=== PATIENT | female | born 1940 | race Hispanic/Latino ===

== ENCOUNTER 2016-11-21 04:10 | Inpatient (IN) | payer MEDICARE, BC ==
[2016-11-21 04:17] VITALS: BMI 28.0
--- NOTE | 2016-11-21 04:28 | ED PDOC ---
Arrival/HPI - General Chief Complaint: Weakness/Neurological Deficit Time Seen by Provider: 11/21/16 04:12 Historian: Patient - History of Present Illness Narrative History of Present Illness (Text): 11/21/16 04:25 Yesenia Simmons is a 76 year old female, whose past medical history includes CAD, IN, hyperlipidemia, hypertension, SVT, and hypothyroidism, who presents to the Emergency department brought in by EMS complaining of shortness of breath status post syncopal episode. Patient states she woke up tonight with shortness of breath and notes she collapsed to the floor while walking to the bathroom at home. Patient denies any fever, chills, chest pain, nausea, vomiting, diarrhea, urinary symptoms, back pain, neck pain, headache, dizziness, or any other complaints. 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 Deafness: Yes (WITH MEERA HEARING AIDES) - Renal Hx Renal Disorder: No - Endocrine/Metabolic Hx Hypothyroidism: Yes Other/Comment: bubba's disease - Hematological/Oncological Hx Blood Disorders: Yes Hx Cancer: Yes (TONGUE NO RADIATION OR CHEMO) - Integumentary Hx Dermatological Disorder: No - Musculoskeletal/Rheumatological Hx Musculoskeletal Disorders: No Hx Falls: No - Gastrointestinal Hx Gastrointestinal Disorders: Yes - Genitourinary/Gynecological Hx Genitourinary Disorders: No - Psychiatric Hx Psychophysiologic Disorder: No Hx Depression: No Hx Emotional Abuse: No Hx Physical Abuse: No Hx Substance Use: No - Past Surgical History Past Surgical History: Non-Contributing - Surgical History Other/Comment: BIALTERAL CATARACT SX 2007 - Anesthesia Hx Anesthesia Reactions: No Hx Malignant Hyperthermia: No - Suicidal Assessment Feels Threatened In Home Enviroment: No Family/Social History - Physician Review Nursing Documentation Reviewed: Yes Family/Social History: No Known Family HX Smoking Status: Never Smoked Hx Alcohol Use: No Hx Substance Use: No Hx Substance Use Treatment: No Allergies/Home Meds Allergies/Adverse Reactions: Allergies Penicillins Allergy (Verified 11/21/16 04:24) RASH gluten Adverse Reaction (Verified 11/21/16 04:24) DIARRHEA Home Medications: Home Meds Medication Instructions Recorded Confirmed Montelukast Sodium [Singulair] 10 mg PO DAILY 08/18/15 11/21/16 Promethazine HCl/Codeine 1 tsp PO Q6 08/18/15 11/21/16 [Prometh-Codein 6.25-10 mg/5 ml] Thyroid,Pork [[place] Thyroid] 1 tab PO DAILY 11/21/16 11/21/16 Review of Systems - Physician Review All systems were reviewed & negative as marked: Yes - Review of Systems Constitutional: Normal Eyes: Normal ENT: Normal Respiratory: SOB Gastrointestinal: Normal. absent: Abdominal Pain, Diarrhea, Nausea, Vomiting Genitourinary Female: Normal. absent: Dysuria, Frequency, Hematuria, Urine Output Changes Musculoskeletal: Normal. absent: Back Pain, Neck Pain Skin: Normal. absent: Rash Neurological: Normal. absent: Headache, Dizziness Endocrine: Normal Hemo/Lymphatic: Normal Psychiatric: Normal Physical Exam Vital Signs Reviewed: Yes Vital Signs Temp Pulse Resp BP Pulse Ox 11/21/16 09:00 72 16 148/94 H 97 11/21/16 07:20 97.8 F 64 16 164/87 H 98 11/21/16 06:57 65 16 137/80 98 11/21/16 04:16 98.0 F 83 18 170/99 H 95 Temperature: Afebrile Blood Pressure: Hypertensive Pulse: Regular Respiratory Rate: Normal Appearance: Positive for: Well-Appearing, Non-Toxic, Comfortable Pain Distress: None Mental Status: Positive for: Alert and Oriented X 3 - Systems Exam Head: Present: Atraumatic, Normocephalic Pupils: Present: PERRL Extroacular Muscles: Present: EOMI Conjunctiva: Present: Normal Mouth: Present: Moist Mucous Membranes Neck: Present: Normal Range of Motion Respiratory/Chest: Present: Clear to Auscultation, Good Air Exchange. No: Respiratory Distress, Accessory Muscle Use Cardiovascular: Present: Regular Rate and Rhythm, Normal S1, S2. No: Murmurs Abdomen: Present: Normal Bowel Sounds. No: Tenderness, Distention, Peritoneal Signs Back: Present: Normal Inspection Upper Extremity: Present: Normal Inspection. No: Cyanosis, Edema Lower Extremity: Present: Normal Inspection. No: Edema Neurological: Present: GCS=15, CN II-XII Intact, Speech Normal Skin: Present: Warm, Dry, Normal Color. 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 Plan: -- CT Head w/o contrast -- EKG -- Chest X-ray -- Labs, troponin, D-dimer -- Reassess and disposition Prior Visits: Notes and results from previous visits were reviewed. Progress Notes: Reviewed EKG, NSR at 82 bpm[address] Non-specific ST/T wave changes. 11/21/16 06:18 Reviewed radiology, Chest X-ray shows no active disease. Case discussed with Dr. Yu, who is aware and agrees with plan. Accepts pt in to his service. Pt will go to Telemetry for syncope. - Lab Interpretations Lab Results: 11/22/16 06:00 11/22/16 06:00 Lab Results 11/22/16 06:00: Sodium 141, Potassium 3.9, Chloride 106, Carbon Dioxide 28, Anion Gap 11, BUN 15, Creatinine 0.7, Est GFR ( Amer) > 60, Est GFR (Non- Af Amer) > 60, Random Glucose 88, Calcium 9.0, Magnesium 1.8, Total Bilirubin 0.9, Direct Bilirubin 0.4, AST 30, ALT 33, Alkaline Phosphatase 76, Total Protein 7.3, Albumin 3.9, Globulin 3.4, Albumin/Globulin Ratio 1.1 11/22/16 06:00: WBC 5.3, RBC 4.22, Hgb 13.0, Hct 38.6, MCV 91.5, MCH 30.8, MCHC 33.7, RDW 15.4 H, Plt Count 220, MPV 10.1, Gran % 51.1, Lymph % (Auto) 36.3 H, Sebastian % (Auto) 8.3 H, Eos % (Auto) 3.4, Baso % (Auto) 0.9, Gran # 2.70, Lymph # 1.9, Sebastian # 0.4, Eos # 0.2, Baso # 0.05 11/21/16 22:01: Total Creatine Kinase 47, Troponin I 0.07 D 11/21/16 12:07: Total Creatine Kinase 62, Troponin I 0.09 11/21/16 12:07: RPR Nonreactive 11/21/16 12:07: Free T4 0.94, Thyroxine (T4) 7.1, TSH 3rd Generation 2.07 11/21/16 12:07: Total Creatine Kinase 57, Troponin I 0.09 D, Triglycerides 65, Cholesterol 188, LDL Cholesterol Direct 82, HDL Cholesterol 78 H 11/21/16 12:00: 25-OH Vitamin D Total 62.8 11/21/16 05:00: PT 11.1, INR 1.03, APTT 26.7, D-Dimer, Quantitative 0.48 11/21/16 05:00: WBC 5.7 D, RBC 4.43, Hgb 13.8, Hct 40.2, MCV 90.7, MCH 31.2, MCHC 34.3, RDW 15.1 H, Plt Count 222, MPV 10.5, Gran % 53.3, Lymph % (Auto) 37.9 H, Sebastian % (Auto) 5.8, Eos % (Auto) 2.3, Baso % (Auto) 0.7, Gran # 3.02, Lymph # 2.2, Sebastian # 0.3, Eos # 0.1, Baso # 0.04 11/21/16 05:00: Sodium 144, Potassium 3.3 L, Chloride 107, Carbon Dioxide 26, Anion Gap 14, BUN 17, Creatinine 0.6, Est GFR ( Amer) > 60, Est GFR (Non- Af Amer) > 60, Random Glucose 102, Calcium 9.2, Total Bilirubin 0.4, AST 37, ALT 34, Alkaline Phosphatase 89, Troponin I 0.02 D, Total Protein 7.5, Albumin 4.1, Globulin 3.4, Albumin/Globulin Ratio 1.2 I have reviewed the lab results: Yes - RAD Interpretation Radiology Orders: 11/21/16 04:24 HEAD W/O CONTRAST [CT] Stat 11/21/16 04:26 CHEST ONE VIEW [RAD] Stat 11/21/16 07:22 BRAIN W & WO CONTRAST [MRI] Urgent MRA HEAD WITHOUT CONTRAST [MRI] Urgent CAROTID & VERTEBRAL DUPLEX [US] Stat - EKG Interpretation Interpreted by ED Physician: Yes Type: 12 lead EKG - Medication Orders Current Medication Orders: Acetaminophen (Tylenol 325mg Tab) 650 mg PO Q4H PRN PRN Reason: Pain, Mild (1-3) Aspirin (Ecotrin) 325 mg PO DAILY [facility] Last Admin: 11/24/16 10:45 Dose: 325 mg Atorvastatin Calcium (Lipitor) 40 mg PO DAILY [facility] Last Admin: 11/24/16 10:50 Dose: Not Given Non-Admin Reason: Patient Refused Clopidogrel Bisulfate (Plavix) 75 mg PO DAILY [facility] Last Admin: 11/24/16 10:45 Dose: 75 mg Diltiazem HCl (Cardizem Cd) 180 mg PO DAILY [facility] Last Admin: 11/24/16 10:46 Dose: 180 mg Enoxaparin Sodium (Lovenox) 30 mg SC DAILY [facility] PRN Reason: Protocol Last Admin: 11/24/16 10:49 Dose: Not Given Non-Admin Reason: Patient Refused Losartan Potassium (Cozaar) 100 mg PO DAILY [facility] Last Admin: 11/24/16 10:45 Dose: 100 mg Pantoprazole Sodium (Protonix Ec Tab) 40 mg PO 0630 [facility] Last Admin: 11/24/16 05:48 Dose: 40 mg Discontinued Medications Carvedilol (Coreg) 6.25 mg PO BID [facility] Last Admin: 11/21/16 10:53 Dose: 6.25 mg Clopidogrel Bisulfate (Plavix) 75 mg PO STAT STA Stop: 11/21/16 21:29 Last Admin: 11/21/16 22:12 Dose: 75 mg Enoxaparin Sodium (Lovenox) 40 mg SC DAILY [facility] PRN Reason: Protocol Last Admin: 11/21/16 10:56 Dose: 40 mg Enoxaparin Sodium (Lovenox) 70 mg SC Q24H [facility] PRN Reason: Protocol Last Admin: 11/22/16 23:30 Dose: Gadodiamide (Omniscan No Safepak) Confirm Administered Dose 4,305 mg IV .STK- MED ONE Stop: 11/21/16 09:59 Losartan Potassium (Cozaar) 100 mg PO DAILY [facility] Losartan Potassium (Cozaar) 50 mg PO DAILY [facility] Last Admin: 11/23/16 06:26 Dose: 50 mg Losartan Potassium (Cozaar) 50 mg PO DAILY [facility] Losartan Potassium (Cozaar) 50 mg PO STAT STA Stop: 11/23/16 08:37 Last Admin: 11/23/16 09:02 Dose: 50 mg Pneumococcal Polyvalent Vaccine (Pneumovax 23 Vaccine) 0.5 ml IM .ONCE ONE Stop: 11/21/16 13:16 Potassium Chloride (K-Dur 20 Meq Er Tab) 20 meq PO STAT STA Stop: 11/21/16 05:42 Last Admin: 11/21/16 05:54 Dose: 20 meq Potassium Chloride (Potassium Chloride Oral Soln) 40 meq PO STAT STA Stop: 11/21/16 07:30 Last Admin: 11/21/16 08:43 Dose: 40 meq - Jorgeibrosanne Statement The provider has reviewed the documentation as recorded by the Jorgeibrosanne Anthony All medical record entries made by the José Miguel were at my direction and personally dictated by me. I have reviewed the chart and agree that the record accurately reflects my personal performance of the history, physical exam, medical decision making, and the department course for this patient. I have also personally directed, reviewed, and agree with the discharge instructions and disposition. Disposition/Present on Arrival - Present on Arrival Any Indicators Present on Arrival: No History of DVT/PE: No History of Uncontrolled Diabetes: No Urinary Catheter: No History of Decub. Ulcer: No History Surgical Site Infection Following: None - Disposition Have Diagnosis and Disposition been Completed?: Yes Diagnosis: Syncope Disposition: HOSPITALIZED Disposition Time: 06:20 Condition: GOOD
[2016-11-21 05:11] LABS: ADD MANUAL DIFF? NO
[2016-11-21 05:27] LABS: BASO # 0.04 K/mm3 (0.0-2.0); BASO % 0.7 % (0.0-3.0); EOS # 0.1 (0.0-0.7); EOS % 2.3 % (1.5-5.0); GRAN # 3.02 (1.4-6.5); GRAN % 53.3 % (50.0-68.0); HEMATOCRIT 40.2 % (36.0-48.0); LYMPH # 2.2 (1.2-3.4); LYMPH % 37.9 % (22.0-35.0); MEAN CELL VOLUME 90.7 fL (80.0-105.0); MEAN CORPUSCULAR HEMOGLOBIN 31.2 pg (25.0-35.0); MEAN CORPUSCULAR HGB CONC 34.3 g/dl (31.0-37.0); MEAN PLATELET VOLUME 10.5 fl (7.0-11.0); MONO # 0.3 (0.1-0.6); MONO % 5.8 % (1.0-6.0); PLATELET COUNT 222 10^3/uL (120.0-450.0); RED CELL DISTRIBUTION WIDTH 15.1 % (11.5-14.5); WHITE BLOOD COUNT 5.7 10^3/ul (4.5-11.0)
[2016-11-21 05:29] LABS: ALB/GLOB RATIO 1.2 (1.1-1.8); ALKALINE PHOSPHATASE 89 U/L (38-133); ALT/SGPT 34 U/L (7-56); AST/SGOT 37 U/L (15-39); BILIRUBIN,TOTAL 0.4 mg/dL (0.2-1.3); BLOOD UREA NITROGEN 17 mg/dL (7-21); CALCIUM 9.2 mg/dL (8.4-10.5); CARBON DIOXIDE 26 mmol/L (21-33); CHLORIDE 107 mmol/L (95-110); GFR AFRICAN-AMERICAN > 60; GLUCOSE,RANDOM 102 mg/dL (70-110); POTASSIUM 3.3 mmol/L (3.6-5.0); SODIUM 144 mmol/L (132-148); TOTAL PROTEIN 7.5 g/dL (5.8-8.3)
[2016-11-21 05:30] LABS: INR 1.03 (0.93-1.08); PARTIAL THROMBOPLASTIN TIME 26.7 Seconds (23.7-30.8)
[2016-11-21 05:34] LABS: D DIMER 0.48 mg/L FEU (0-0.50)
[2016-11-21 05:36] LABS: TROPONIN I 0.02 ng/mL
[2016-11-21] MEDS ORDERED: Potassium Chloride 20 mEq ER Tab PO STA (05:41)
[2016-11-21] MEDS ORDERED: Potassium Chloride 40 mEq/30 ml LIQ UD PO STA (07:29)
--- NOTE | 2016-11-21 08:08 | CT ---
PROCEDURE: CT HEAD WITHOUT CONTRAST. HISTORY: syncope COMPARISON: 08/18/2015 TECHNIQUE: Axial computed tomography images were obtained through the head/brain without intravenous contrast. Radiation dose: Total exam DLP = 688 mGy-cm. This CT exam was performed using one or more of the following dose reduction techniques: Automated exposure control, adjustment of the mA and/or kV according to patient size, and/or use of iterative reconstruction technique. FINDINGS: HEMORRHAGE: No intracranial hemorrhage. BRAIN: No mass effect or edema. No atrophy or chronic microvascular ischemic changes. VENTRICLES: Unremarkable. No hydrocephalus. CALVARIUM: Unremarkable. PARANASAL SINUSES: Unremarkable as visualized. No significant inflammatory changes. MASTOID AIR CELLS: Unremarkable as visualized. No inflammatory changes. OTHER FINDINGS: None. IMPRESSION: Normal CT of the Head.
--- NOTE | 2016-11-21 08:33 | US ---
PROCEDURE: Bilateral carotid artery duplex ultrasound HISTORY: Carotid stenosis syncope PHYSICIAN(S): Flip Quintero MD. TECHNIQUE: Duplex sonography and color-flow Doppler were used to evaluate the carotid bifurcations and limited segments of the vertebral arteries bilaterally. FINDINGS: There is mild smooth heterogeneous plaque noted at the carotid bifurcations bilaterally. The peak systolic velocity in the proximal right internal carotid artery is 56 cm/sec. This corresponds to a 20 to 39% proximal right ICA stenosis. Normal systolic velocities are noted in the proximal right external carotid artery. There is antegrade flow in the right vertebral artery. The peak systolic velocity in the proximal left internal carotid artery is 60 cm/sec. This corresponds to a 20 to 39% proximal left ICA stenosis. Normal systolic velocities are noted in the proximal left external carotid artery. There is antegrade flow in the left vertebral artery. IMPRESSION: 1. Bilateral 20-39% proximal ICA stenoses. 2. Antegrade flow in both vertebral arteries.
[2016-11-21] MEDS: Pantoprazole 40 mg EC Tab PO SCH (08:43)
--- NOTE | 2016-11-21 08:43 | RAD ---
PROCEDURE: CHEST RADIOGRAPH, 1 VIEW HISTORY: pain COMPARISON: 08/18/2015 FINDINGS: LUNGS: Clear. PLEURA: No pneumothorax or pleural fluid seen. CARDIOVASCULAR: Normal. OSSEOUS STRUCTURES: No significant abnormalities. VISUALIZED UPPER ABDOMEN: Normal. OTHER FINDINGS: None. IMPRESSION: No active disease.
--- NOTE | 2016-11-21 09:44 | CON ---
DATE: 11/21/2016 REASON FOR CONSULTATION: Episode of passing out. HISTORY OF PRESENT ILLNESS: The patient is a 76-year-old female who has been asked for evaluation of episode of passing out. The patient said she woke up last night, wanted to go to the bathroom, and after that as she was walking she just collapsed. She did not have any urinary incontinence or tongu e biting. Denies any chest pain or palpitation right before that. Did have some lightheadedness. S he said she thinks she passed out very briefly and she was not unconscious for a long time. Denied a ny focal weakness in arms or legs. She said that she passed out about 3 years ago in the past. At t he moment she feels fine. REVIEW OF SYSTEMS: Denies any headache, dizziness, chest pain, shortness of breath, abdominal pain, constipation, diarrhea, dysuria, pyuria, cough, sputum production, rashes, hallucinations, or any abn ormal swelling. PAST MEDICAL HISTORY: Includes Chago thyroiditis. MEDICATIONS AT HOME: Include Singulair, promethazine/codeine, Bernard thyroid and Zithromax. ALLERGIES: PENICILLIN AND GLUTEN. SOCIAL HISTORY: Denies smoking, use of alcohol or illicit drugs. FAMILY HISTORY: Reviewed and noncontributory to the case. PHYSICAL EXAMINATION: GENERAL: The patient is an elderly pleasant female lying on the bed in no acute distress. VITAL SIGNS: Her blood pressure is 164/87, heart rate is 64 per minute, breathing at a rate of 16 pe r minute, temperature is 97.8 degrees Fahrenheit. HEENT: Head is normocephalic, atraumatic. NECK: Supple. There are no carotid bruits. LUNGS: Clear. CARDIOVASCULAR: S1, S2 audible. No murmurs. ABDOMEN: Soft and nontender, bowel sounds present. NEUROLOGIC EXAMINATION: MENTAL STATUS: The patient is awake, alert, oriented to time, place, person. Speech is fluent. Nam ing and repetition normal. Memory and cognition are intact. CRANIAL NERVES: Pupils are 4 mm, bilaterally reactive to light. Visual faith are full. Extraocula r movements are intact. There is no facial asymmetry. Palate is upgoing bilaterally and tongue is m idline. MOTOR: Tone is normal. Power is 5/5 bilaterally in all extremities. Reflexes 1+ and symmetrical. Plantars downgoing bilaterally. CEREBELLAR: [id number] shows no dysmetria. GAIT: Deferred at the moment. SENSORY: Intact to soft touch and pinprick bilaterally. LABORATORY DATA: Reviewed. Shows WBC 5.7, hemoglobin 13.8, hematocrit 40.2, and platelets of 222. INR is 1.03. Sodium is 144, potassium 3.3, chloride 107, carbon dioxide 26, BUN 17, creatinine 0.6, and glucose of 102. She had a CT scan of the head done which showed a normal CT scan of the head. She also had a carotid Doppler study done which shows 20-39% proximal internal carotid artery stenosis. IMPRESSION: Syncope. Rule out cardiac arrhythmias versus seizure. RECOMMENDATIONS: 1. The patient to have MRI of the brain without contrast. 2. The patient also to have an electroencephalogram. 3. The patient to have cardiac monitoring to rule out any cardiac arrhythmias. 4. At the moment, the patient feels fine. 5. Please continue supportive care and other treatment. Thank you for the opportunity to participate in the care of this patient. Konrad Brothers MD cc: [id number] TT: 11/21/2016 09:43:09 Confirmation # [id number] Dictation # [id number] [id number]
[2016-11-21] MEDS ORDERED: Gadodiamide 287 MG/ML VIAL (15ML) IV ONE (09:58)
[2016-11-21] MEDS ORDERED: Enoxaparin 40 mg Syringe SC SCH (10:00)
--- NOTE | 2016-11-21 10:17 | CARD ---
APPROVED REPORT EKG Measurement Heart [id number] <Conclusion> Sinus rhythm with premature atrial complexes Possible Left atrial enlargement RSR' or QR pattern in V1 suggests right ventricular conduction delay Borderline ECG
--- NOTE | 2016-11-21 10:44 | MRI ---
PROCEDURE: MRI BRAIN WITH AND WITHOUT CONTRAST HISTORY: SYNCOPE COMPARISON: None. TECHNIQUE: Multiplanar, multisequence MR images of the brain were obtained with and without intravenous contrast enhancement. 15 cc of Omniscan FINDINGS: HEMORRHAGE: None DWI: No evidence of an acute or early subacute infarction. BRAIN PARENCHYMA: No mass,mass effect or edema. No atrophy or chronic microvascular ischemic changes. ENHANCEMENT: No abnormal intracranial enhancement. VENTRICLES: Unremarkable. No hydrocephalus. CRANIUM: Unremarkable. ORBITS: Grossly unremarkable. PARANASAL SINUSES/MASTOIDS: Clear VASCULAR SYSTEM: Skull base flow voids intact. OTHER FINDINGS: None . IMPRESSION: Unremarkable pre and post contrast enhanced MRI of the brain.
--- NOTE | 2016-11-21 10:46 | MRI ---
PROCEDURE: Magnetic Resonance Angiography Brain HISTORY: SYNCOPE COMPARISON: None available. TECHNIQUE: 3D time of flight MR angiography of the intracranial arteries was performed. Rotating maximum intensity projection images were generated. FINDINGS: INTERNAL CEREBRAL ARTERIES: Unremarkable. The skull base, petrous, cavernous and supraclinoid segments are bilaterally widely patient. ANTERIOR CEREBRAL ARTERIES: Unremarkable. A1 and A2 segments are widely patent. Smaller distal branches unremarkable, as visualized. MIDDLE CEREBRAL ARTERIES: Unremarkable. M1 and M2 segments are widely patent. Perisylvian branches grossly symmetric. POSTERIOR CIRCULATION: Basilar Artery: Unremarkable. Distal Vertebral Arteries: Unremarkable. Posterior Cerebral Arteries: Unremarkable. Posterior Inferior Cerebellar Arteries: Unremarkable. ANEURYSM/ VASCULAR MALFORMATIONS: None. OTHER FINDINGS: None. IMPRESSION: Unremarkable MR angiography of the brain.
[2016-11-21] MEDS: Aspirin 325 mg EC Tablets PO SCH (10:53)
--- NOTE | 2016-11-21 11:20 | HP ---
The patient is a 76-year-old very poorly compliant female who does not follow up regularly in the off ice and does not take prescribed medication, came to the Emergency Room by [facility] ambulance after , according to the triage note, the patient got up to go to the bathroom and collapsed on the floor w ith loss of consciousness, and the patient developed shortness of breath after collapsing. The patie nt had shortness of breath with loss of consciousness while going towards the bathroom. REVIEW OF SYSTEMS: A 13-system review was done. Pertinent positives and negatives dictated above. CODE STATUS: Full code. LIVING WILL AND ADVANCED DIRECTIVE: None. ALLERGIES: PENICILLIN AND GLUTEN. Height is 5 feet 3 inches. Weight is 158. BMI is 28. HOME MEDICATIONS: The patient stated that she is only taking [place] thyroid 15 ____. The patient is not taking Cardizem CD 180. The patient is not taking statins. The patient is not taking aspirin. OCCUPATIONAL HISTORY: Disabled. MENSTRUAL HISTORY: Postmenopausal. SOCIAL HISTORY: Denies substance abuse. Denies alcohol. Denies smoking, denies drug use, denies co mmunicable transmissible disease. FAMILY HISTORY: Not available. 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 The patient's past medical history is also significant for history of atelectasis, pneumonia, history of incomplete right bundle-branch block, history of pneumonia. The patient's past medical history i s also significant for status post partial glossectomy, history of lingular tongue carcinoma, history of hepatic steatosis, history of systemic inflammatory response syndrome, history of elevated D-dime r in the past, history of nonspecific mediastinal lymphadenopathy, history of hypothyroidism, history of cardiac catheterization in 2011 with normal ejection fraction 70% with normal coronaries. Incomp lete right bundle-branch block. The patient's EEG, which was done in 07/2015 was negative and normal EEG. PHYSICAL EXAMINATION: GENERAL: The patient was seen in the Emergency Room, then the patient was seen on the floor on telem etry. The patient is seen lying in the bed. VITAL SIGNS: T-max 98.0, heart rate 64-83, blood pressure 170/99, 137/80, 164/87, 148/94, respiratio ns 16-18, O2 sat 95%-98%. HEAD: Normocephalic, atraumatic. HEENT: Shows pink conjunctivae, anicteric sclerae, positive left-sided tongue deformity and partial glossectomy. NECK: Questionable soft carotid bruit. CHEST: Kyphosis. LUNGS: Show ____ very occasional rhonchi. CARDIOVASCULAR: S1, S2. Questionable soft systolic murmur left sternal border, left second intercos beatriz space. ABDOMEN: Soft, positive bowel sounds. No tenderness, no guarding, no rigidity. GENITALIA: Female. RECTAL: Deferred. EXTREMITIES: Shows no clubbing, no cyanosis, no pitting edema, no calf tenderness, no Homans' sign. NEUROLOGIC: The patient is alert, awake, oriented x 3. Cranial nerves II-XII intact. Speech is nor mal. SKIN: Warm and dry. PSYCHIATRIC: Negative for anxiety, depression. Negative for auditory or visual hallucination Negati ve for suicidal or homicidal ideation. NEUROLOGICAL: Negative at this time. GAIT: Could not be tested, as the patient is lying in the bed, and waiting to go for MRI of the bra in. DIAGNOSTICS: CBC is within normal limits. PT, PTT, and D-dimer are negative. Chemistry is signific ant for a potassium of 3.3, troponin 0.02. CAT scan of the head was done, which the [facility] reading [place] reading was reviewed. v[facility] reading w as reviewed. Chest x-ray report shows no active disease. [facility] reading shows possible chronic left basal ganglia l acunar infarct. The patient's carotid ultrasound was ordered stat. MRI/MRA brain ordered stat. Results are pending. Carotid ultrasound showed 20-39% proximal internal carotid artery stenosis. EKG shows sinus rhythm with questionable right ventricular conduction delay versus incomplete right b undle-branch block. The patient was seen by the Emergency Room physician. The patient was evaluated. The patient was tr eated in the Emergency Room and placed on telemetry. IMPRESSION AND PLAN: 1. Syncope with shortness of breath, etiology undetermined. 2. History of paroxysmal supraventricular tachycardia, noncompliant with medication. 3. Uncontrolled hypertension. 4. Hypokalemia. 5. Questionable chronic left basal ganglia lacunar infarct. 6. Bilateral 20%-39% proximal internal carotid artery stenosis. 7. Questionable incomplete right bundle-branch block versus right ventricular conduction delay. 8. History of poor compliance. 9. History of lingular carcinoma status post partial glossectomy. 10. Hypokalemia. 11. History of hypothyroidism, history of dyslipidemia, history of hearing deficit, history of parox ysmal supraventricular tachycardia, history of dyslipidemia, history of hypothyroidism, history of to ngue carcinoma, history of hypothyroidism, history of hearing deficit, history of questionable chroni c obstructive pulmonary disease, history of pneumonia. PLAN: 1. At this time, the patient is placed on telemetry. 2. Consultation cardiology and neurology. 3. Thyroid profile ordered, vitamin D ordered, lipid panel ordered, serial cardiac enzymes, repeat c hemistry ordered, potassium supplemented. Repeat labs ordered, RPR ordered. The patient is resumed on Coreg 6.25 twice a day, Cozaar 50 mg daily, Ecotrin 325 daily. The patient has been supplemented with potassium, Lipitor 40 daily, Lovenox 40 subQ daily for DVT pro phylaxis, Protonix 40 mg daily for GI prophylaxis, Tylenol p.r.n. The patient is ordered MRI/MRA of the brain, echo with Doppler, EEG. Repeat EKG will be ordered. Heart-healthy diet. The patient was updated about the possible diagnostic possibilities and possible causes of her sympto ms. The patient was again advised strict compliance with medication. The patient was advised strict dietary compliance, strict compliance with medication. The patient was advised strict compliance wi th physician followup, which she acknowledged and understood. At this time, the patient's further disposition will be dependent upon the patient's clinical conditi on, hemodynamic status, and as per patient's response to therapeutic intervention, as per patient's d iagnostic test results, and as per recommendation by all the physicians involved in the care of the p atient. Dictated and electronically signed, not read. Juancho Yu MD cc: [id number] TT: 11/21/2016 11:19:08 monet
--- NOTE | 2016-11-21 12:28 | CON ---
DATE: 11/21/2016 CARDIOLOGY CONSULTATION HISTORY: The patient is a 76-year-old woman who had a near syncopal episode while [place] [employer] [place] The patient has had previous syncopal episodes before in which the workup has been unrevealing. PAST MEDICAL HISTORY: Notable for documented SVT in which she was successfully treated with Cardizem CD. Her previous echo in 2016 was unremarkable. The patient does suffer from hypertension. Negative diabetes mellitus. No previous cardiac history. No angina, no shortness of breath. SOCIAL HISTORY: The patient does not smoke. REVIEW OF SYSTEMS: A 14-point review of systems was reviewed. No cardiac symptomatology can be elic ited. PHYSICAL EXAMINATION: VITAL SIGNS: Blood pressure is 149/78. Heart rate is in the 70s. NECK: Negative JVD. LUNGS: Without rales. HEART: Reveals S1, S2. EXTREMITIES: Without edema. EKG shows normal sinus rhythm with APCs, but no acute changes. LABORATORIES: Troponins are 0.02 with one that was 0.04. The hemoglobin was 13.8. IMPRESSION: 1. Near syncope. 2. Hypertension. 3. No evidence for acute coronary syndrome. 4. History of hypothyroidism. 5. History of supraventricular tachycardia. Given these findings, the patient was scheduled for a stress test last year, which she never showed u p for her procedure. We will repeat an echocardiogram today. We will monitor on telemetry for 24 hours. We will continue her on her Cardizem. Flip Lr MD cc: [id number] TT: 11/21/2016 12:28:28 Confirmation # [id number] Dictation # [id number] jn
[2016-11-21 12:34] LABS: TROPONIN I 0.09 ng/mL
[2016-11-21 12:42] LABS: FREE T4 0.94 ng/dL (0.78-2.19); T4 7.1 ug/dL (5.5-11.0)
[2016-11-21 12:55] LABS: THYROID STIMULATING HORMONE 2.07 mIU/mL (0.46-4.68)
[2016-11-21] MEDS: diltiaZEM 180 mg/24 Hours CD Cap PO SCH (12:55)
[2016-11-21] MEDS ORDERED: Pneumococcal 23-Valent Vaccine IM ONE (13:15)
[2016-11-21 22:48] LABS: TROPONIN I 0.07 ng/mL
[2016-11-22] MEDS: Pantoprazole 40 mg EC Tab PO SCH (05:35)
[2016-11-22 06:53] LABS: ADD MANUAL DIFF? NO
[2016-11-22 07:15] LABS: BASO # 0.05 K/mm3 (0.0-2.0); BASO % 0.9 % (0.0-3.0); EOS # 0.2 (0.0-0.7); EOS % 3.4 % (1.5-5.0); GRAN % 51.1 % (50.0-68.0); HEMATOCRIT 38.6 % (36.0-48.0); LYMPH # 1.9 (1.2-3.4); LYMPH % 36.3 % (22.0-35.0); MEAN CELL VOLUME 91.5 fL (80.0-105.0); MEAN CORPUSCULAR HEMOGLOBIN 30.8 pg (25.0-35.0); MEAN CORPUSCULAR HGB CONC 33.7 g/dl (31.0-37.0); MEAN PLATELET VOLUME 10.1 fl (7.0-11.0); MONO # 0.4 (0.1-0.6); MONO % 8.3 % (1.0-6.0); PLATELET COUNT 220 10^3/uL (120.0-450.0); RED CELL DISTRIBUTION WIDTH 15.4 % (11.5-14.5); WHITE BLOOD COUNT 5.3 10^3/ul (4.5-11.0)
[2016-11-22 07:16] LABS: ALB/GLOB RATIO 1.1 (1.1-1.8); ALKALINE PHOSPHATASE 76 U/L (38-133); ALT/SGPT 33 U/L (7-56); AST/SGOT 30 U/L (15-39); BILIRUBIN,DIRECT 0.4 mg/dL (0.0-0.4); BILIRUBIN,TOTAL 0.9 mg/dL (0.2-1.3); BLOOD UREA NITROGEN 15 mg/dL (7-21); CARBON DIOXIDE 28 mmol/L (21-33); CHLORIDE 106 mmol/L (98-107); GFR AFRICAN-AMERICAN > 60; GLUCOSE,RANDOM 88 mg/dL (70-110); MAGNESIUM 1.8 mg/dL (1.7-2.2); SODIUM 141 mmol/L (132-148); TOTAL PROTEIN 7.3 g/dL (5.8-8.3)
[2016-11-22 07:29] LABS: POTASSIUM 3.9 mmol/L (3.6-5.0)
--- NOTE | 2016-11-22 09:27 | PN ---
DATE: 11/22/2016 SUBJECTIVE: The patient is sitting on the bed, in no acute distress. Denies having any headache or dizziness. PHYSICAL EXAMINATION: VITAL SIGNS: Her blood pressure is 151/81, heart rate is 60 per minute, breathing at a rate of 16 pe r minute, temperature is 97.1 degrees Fahrenheit. HEENT: Normocephalic, atraumatic. NECK: Supple. There are no carotid bruits. LUNGS: Clear. CARDIOVASCULAR: S1, S2 audible. No murmurs. ABDOMEN: Soft, nontender, bowel sounds present. NEUROLOGIC EXAMINATION: MENTAL STATUS: The patient is awake, alert, oriented to time, place, person. Speech is fluent. Nam ing and repetition normal. Memory and cognition are intact. She is hard of hearing. CRANIAL NERVE: Pupils are 3 mm bilaterally, reactive to light. Visual faith are full. Extraocular movements are intact. There is no facial asymmetry. Palate is upgoing bilaterally and tongue is mi dline. MOTOR: Tone is normal. Power is 5/5 bilaterally in all extremities. Reflexes +2 and symmetrical. Plantars downgoing bilaterally. CEREBELLAR: [id number] shows no dysmetria. LABORATORY DATA: Labs reviewed. MRI of the brain unremarkable. MRA of the brain unremarkable. EEG normal. IMPRESSION: Status post syncope. RECOMMENDATIONS: 1. The patient had no further episode of passing out or feeling like passing out. 2. The patient's neuro imaging as well as electroencephalogram is within normal limits. 3. The patient had a carotid Doppler study which was normal as well. 4. The patient's cardiac monitoring does not reveal any cardiac arrhythmias. 5. No further neurologic recommendations. We will sign off. Please call on an as needed basis. Thank you for the opportunity to participate in the care of this patient. Konrad Brothers MD cc: [id number] TT: 11/22/2016 09:27:04 Confirmation # [id number] Dictation # [id number] tn
--- NOTE | 2016-11-22 09:51 | EEG ---
DATE: 11/21/2016 INTRODUCTION: This is a digitally recorded EEG monitoring using standard EEG montages. BACKGROUND RHYTHM: The EEG shows a background activity of 8 Hz alpha activity in parietooccipital re gion. The EEG activity is bilaterally symmetrical and synchronous. There is attenuation of the back ground activity on eye opening. Drowsiness was noted by slowing of the background activity. ABNORMAL POTENTIALS: No spikes, sharp waves or focal slowing was seen. PHOTIC STIMULATION AND HYPERVENTILATION: Photic stimulation did not reveal any abnormality. Hyperve ntilation was not performed. IMPRESSION: Normal electroencephalogram. No epileptiform activity seen in this electroencephalogram recording. oKnrad Brothers MD cc: [id number] TT: 11/22/2016 09:50:19 Confirmation # [id number] Dictation # [id number] en
--- NOTE | 2016-11-22 10:26 | PN ---
DATE: 11/22/2016 The patient is in room 277, bed 1. The patient's overnight nurse's notes were reviewed. The patient's troponin bumped yesterday. Case discussed with Dr. Lr last night regarding further management. The patient's overnight nurse's notes were reviewed. No adverse event documented. PHYSICAL EXAMINATION: VITAL SIGNS: T-max 97.6, heart rate 66-79, blood pressure ranging from 151/81, 146/77, 151/74, 149/80, 133/72. Respirations 20, O2 sat averaging around mid to high 90s. GENERAL: The patient is in room 277, bed 1. The patient slept well overnight. DIAGNOSTICS: 11/22: WBC 5.3, hemoglobin and hematocrit 13 and 38.6, platelets 220. Sodium 141, potassium is 3.9, chloride 106, CO2 28, anion gap 11, BUN 15, creatinine 0.7, GFR greater than 60, glucose 88, calcium 9.0, magnesium 1.8. LFTs are normal. Peak troponin I is 0.09, which bumped up to 0.09 from 0.02 on admission. RPR is nonreactive. MRI/MRA of the brain and carotid ultrasound noted. MRI/MRA of the brain was noted to be unremarkable. EKG shows sinus rhythm, questionable incomplete right bundle branch block versus right ventricular conduction delay. EEG read by Dr. Brothers, which was normal EEG without any seizure activity. IMPRESSION AND PLAN: 1. Syncope, etiology undetermined. 2. Indeterminate troponin. 3. History of paroxysmal supraventricular tachycardia. 4. History of poor compliance and noncompliance. 5. Hypertension. 6. Indeterminate troponin. 7. History of hypothyroidism. 8. Hypokalemia. 9. Bilateral 20%-39% proximal internal carotid artery stenosis. 10. Questionable incomplete right bundle branch block versus right ventricular conduction delay. 11. History of poor compliance. 1. Syncope with shortness of breath, etiology undetermined. 2. History of paroxysmal supraventricular tachycardia, noncompliant with medication. 3. Uncontrolled hypertension. 4. Hypokalemia. 5. Questionable chronic left basal ganglia lacunar infarct. 6. Bilateral 20%-39% proximal internal carotid artery stenosis. 7. Questionable incomplete right bundle-branch block versus right ventricular conduction delay. 8. History of poor compliance. 9. History of lingular carcinoma status post partial glossectomy. 10. Hypokalemia. 11. History of hypothyroidism, history of dyslipidemia, history of hearing deficit, history of paroxysmal supraventricular tachycardia, history of dyslipidemia, history of hypothyroidism, history of tongue carcinoma, history of hypothyroidism, history of hearing deficit, history of questionable chronic obstructive pulmonary disease, history of pneumonia. PLAN: At this time, case discussed with cardiology. Their recommendation is to start therapeutic doses of Lovenox, aspirin and Plavix. The patient is to be continued on telemetry. The patient is scheduled for cardiac catheterization on Friday as per cardiology. Echo with Doppler is pending. CURRENT MEDICATIONS: Cardizem-CD 180 mg p.o. daily, Cozaar 50 mg daily, aspirin 325 daily, Lipitor 40 mg daily, Lovenox 70 mg subQ q. 24, Plavix 75 mg daily, Protonix 40 mg daily, Tylenol p.r.n. Echo with Doppler is pending. The patient is on heart healthy diet. The patient will be ordered out of bed ad bong. The patient has been ordered out of bed. At present, patient's further management is dependent upon patient's clinical condition, hemodynamic status, and as per patient's response to therapeutic intervention, as per patient's diagnostic test results. Dictated and electronically signed, not read. Juancho Yu MD cc: [id number] TT: 11/22/2016 10:26:32 Confirmation # [id number] Dictation # [id number] en MTDD
[2016-11-22] MEDS: diltiaZEM 180 mg/24 Hours CD Cap PO SCH (10:39)
[2016-11-22] MEDS: Aspirin 325 mg EC Tablets PO SCH (10:39)
[2016-11-22] MEDS: Enoxaparin 80 mg Syringe SC SCH ×3 (10:40→23:30)
--- NOTE | 2016-11-22 11:19 | CARD ---
APPROVED REPORT EKG Measurement Heart [id number] <Conclusion> Normal sinus rhythm RSR' or QR pattern in V1 suggests right ventricular conduction delay Borderline ECG
--- NOTE | 2016-11-22 16:24 | CON ---
DATE: 11/22/2016 REASON FOR CONSULTATION: Dizziness and near syncope. HISTORY OF PRESENT ILLNESS: The patient is a 76-year-old female who has a history of Chago's dis ease, and history of tongue cancer and with partial resection in 2009, and the patient stated that he r tongue cancer at that time was related to an irritation by a tooth that could not be removed by the dentist on time. The patient received no chemotherapy or radiation therapy after that. The patient is unaware of any history of heart attack in the past. The patient did experience shortness of angela th when she got up at night to go to the bathroom. Then she felt dizzy and collapsed. The patient d enies any complete loss of consciousness. The patient was by herself in the apartment and she [facility]. The patient does not recall experiencing palpitation or diaphoresis. SOCIAL HISTORY: The patient is a nonsmoker, nondrinker. MEDICATIONS: Cardizem CD 180 mg once a day, Cozaar 50 mg once a day, aspirin 325 mg once a day, Lipi tor 40 mg once a day, Lovenox 70 mg subcutaneous twice a day, Plavix 75 mg once a day, Protonix 40 mg p.o. once a day, Tylenol 650 mg q. 6 hours p.r.n. for pain. REVIEW OF SYSTEMS: No nausea or vomiting. No fever or chills. No palpitation and no diaphoresis. PHYSICAL EXAMINATION: GENERAL: The patient is an elderly female who does not appear to be in acute distress. VITAL SIGNS: Blood pressure 176/88, heart rate 62, temperature 97.7, respirations 19. HEENT: Normocephalic. NECK: No JVD. CHEST: Clear. HEART: S1, S2 regular. ABDOMEN: Soft. EXTREMITIES: No edema. LABORATORY DATA: CBC: WBC 5.3; hemoglobin 13; hematocrit 38.6; platelet count 120,000. SMA-7 today is entirely within normal limits. Three sets of troponins are 0.09, 0.09, and 0.07; all in the inde terminate range. TSH level and T4 levels, as well as free T4, are within normal limits. Head MRA, carotid artery ultrasound, and the MRI are all unremarkable. EKG revealed sinus rhythm with RSR pattern in V1. ASSESSMENT: 1. Dizziness and near syncope, rule out cardiac causes. 2. Shortness of breath, rule out underlying congestive heart failure. 3. History of Chago's disease. The patient is currently euthyroid. 4. History of tongue cancer, status post partial resection in 2009. 5. Hypertension. RECOMMENDATIONS: Continue current Cardizem-CD at 180 mg once a day, Cozaar at 50 mg once a day, aspi rin 325 mg once a day, Plavix 75 mg once a day, subcutaneous Lovenox at 70 mg twice a day. I will re view the echocardiographic study performed today and continue telemetry monitoring. Rob Larios MD cc: [id number] TT: 11/22/2016 16:24:13 Confirmation # [id number] Dictation # [id number] dn
--- NOTE | 2016-11-22 17:02 | CARD ---
APPROVED REPORT EXAM: Two-dimensional and M-mode echocardiogram with Doppler and color Doppler. INDICATION Syncope 2D DIMENSIONS Left Atrium (2D)3.4 (1.6-4.0cm)IVSd1.0 (0.7-1.1cm) LVDd4.2 (3.9-5.9cm)PWd1.2 (0.7-1.1cm) LVDs2.7 (2.5-4.0cm)FS (%) 35.7 % LVEF (%)65.6 (>50%) M-Mode DIMENSIONS Aortic Root3.20 (2.2-3.7cm)Aortic Cusp Exc.1.80 (1.5-2.0cm) Aortic Valve AoV Peak Xqeusqjw599.0cm/Yaneth Peak GR.7mmHg Mitral Valve MV E Trryyded25.2cm/sMV A Kffnmcbs01.4cm/sE/A ratio1.1 TDI Lateral E' Peak V8.58cm/sMedial E' Peak V6.63cm/sE/Lateral E'10.9 E/Medial E'14.1 Pulmonary Valve PV Peak Wgvkpwdh14.2cm/sPV Peak Grad.2mmHg Tricuspid Valve TR Peak Ubyyyklm528kl/sRAP RICHHLFI88oqKbSW Peak Gr.10mmHg [id number] LEFT VENTRICLE The left ventricle is normal size. There is normal left ventricular wall thickness. The left ventricular function is normal.EF-65% There is normal LV segmental wall motion. The left ventricular diastolic function is normal. No left ventricle thrombus noted on this study. There is no ventricular septal defect visualized. There is no left ventricular aneurysm. RIGHT VENTRICLE The right ventricle is normal size. There is normal right ventricular wall thickness. The right ventricular systolic function is normal. ATRIA The left atrium size is normal. The right atrium size is normal. The interatrial septum is intact with no evidence for an atrial septal defect. AORTIC VALVE The aortic valve is thickened but opens well. No aortic regurgitation is present. There is no aortic valvular stenosis. There is no aortic valvular vegetation. MITRAL VALVE The mitral valve is thickened but opens well. Mitral regurgitation is trace. There is no mitral valve stenosis. There is no evidence of mitral valve prolapse. TRICUSPID VALVE The tricuspid valve leaflets are thickened , but open well. There is trace tricuspid regurgitation.RVSP-20 mmof hg. There is no tricuspid valve stenosis. There is no tricuspid valve prolapse or vegetation. PULMONIC VALVE The pulmonary valve is normal in structure. GREAT VESSELS The aortic root is normal in size. The ascending aorta is normal in size. The pulmonary artery is normal. The IVC is normal in size and collapses >50% with inspiration. PERICARDIAL EFFUSION There is no pleural effusion. There is a trace pericardial effusion. <Conclusion> Normal Chamber Size. EF-65% Trace MR/TR RVSP-20 mmof Hg.
[2016-11-23] MEDS: Pantoprazole 40 mg EC Tab PO SCH (05:58)
[2016-11-23] MEDS: diltiaZEM 180 mg/24 Hours CD Cap PO SCH (09:01)
[2016-11-23] MEDS: Aspirin 325 mg EC Tablets PO SCH (09:02)
--- NOTE | 2016-11-23 10:25 | PN ---
DATE: 11/23/2016 The patient is seen in room 277, bed 1. The patient is seen lying in the bed. The patient is having breakfast. The patient appears to be comfortable, in no distress. The patient was seen with the patient's nurse. Overnight nurse's notes were reviewed. No adverse events documented. PHYSICAL EXAMINATION: VITAL SIGNS: T-max afebrile. Telemetry shows sinus rhythm, heart rate in 60s. Blood pressure this morning 159/64, 186/91, 183/83, 176/88, 151/81. These are the blood pressure readings for the last 24 hours. Respirations 20, O2 sat 98%. Intake/output not documented correctly. HEAD: Normocephalic, atraumatic. HEENT: Shows positive partial glossectomy. NECK: No carotid bruit. CHEST: Kyphosis. LUNGS: Show no rales, crackles, or wheezing. CARDIOVASCULAR: Shows S1, S2, regular rhythm. ABDOMEN: Soft, positive bowel sounds. GENITALIA: Female. RECTAL: Deferred. EXTREMITIES: Show missing CHANCE stockings despite my orders. NEUROLOGIC: The patient is hard of hearing. Motor strength is 5/5. Cranial nerves II-XII not tested. PSYCHIATRIC: Negative for anxiety, depression. Negative for auditory or visual hallucination. Negative for suicidal or homicidal ideation. DIAGNOSTICS: Sodium 141, potassium 3.9, chloride 106, CO2 28, anion gap 11, BUN 15, creatinine 0.7, GFR greater than 60, glucose 88, calcium 9.0, magnesium 1.8. LFTs are normal. Troponin has peaked up to 0.09 to 0.07. Echocardiogram was reviewed, ejection fraction 65%, right ventricular systolic pressure 20 mmHg. Trace mitral regurgitation, thickened mitral valve leaflet, trace tricuspid regurgitation. EEG was normal. IMPRESSION: 1. Syncope, etiology undetermined. 2. Questionable non-ST elevation myocardial infarction with elevated and indeterminate troponin. 3. Paroxysmal supraventricular tachycardia. 4. Hypertension with episodic uncontrolled hypertension. 5. History of hypothyroidism. 6. Hypokalemia. 7. Bilateral 20-39% proximal internal carotid artery stenosis. 8. Questionable incomplete right bundle branch block versus right ventricular conduction delay. 9. History of poor compliance and noncompliance. 10. History of paroxysmal supraventricular tachycardia, history of hypothyroidism, history of tongue carcinoma, status post glossectomy history of hearing dysfunction, history of sleep apnea. 11. Hypokalemia. 1. Syncope, etiology undetermined. 2. Indeterminate troponin. 3. History of paroxysmal supraventricular tachycardia. 4. History of poor compliance and noncompliance. 5. Hypertension. 6. Indeterminate troponin. 7. History of hypothyroidism. 8. Hypokalemia. 9. Bilateral 20%-39% proximal internal carotid artery stenosis. 10. Questionable incomplete right bundle branch block versus right ventricular conduction delay. 11. History of poor compliance. 1. Syncope with shortness of breath, etiology undetermined. 2. History of paroxysmal supraventricular tachycardia, noncompliant with medication. 3. Uncontrolled hypertension. 4. Hypokalemia. 5. Questionable chronic left basal ganglia lacunar infarct. 6. Bilateral 20%-39% proximal internal carotid artery stenosis. 7. Questionable incomplete right bundle-branch block versus right ventricular conduction delay. 8. History of poor compliance. 9. History of lingular carcinoma status post partial glossectomy. 10. Hypokalemia. 11. History of hypothyroidism, history of dyslipidemia, history of hearing deficit, history of paroxysmal supraventricular tachycardia, history of dyslipidemia, history of hypothyroidism, history of tongue carcinoma, history of hypothyroidism, history of hearing deficit, history of questionable chronic obstructive pulmonary disease, history of pneum PLAN: At this time, the patient's management discussed with cardiology. Dr. Lr recommends a cardiac catheterization because of elevated troponins. CURRENT MEDICATIONS: Cardizem-CD 180 mg daily, Cozaar increased to 100 mg daily , aspirin 325 daily, Lipitor 40 mg daily, Plavix 75 mg daily, Protonix 40 mg daily, Tylenol p.r.n. Repeat EKG ordered. Today's EKG is not available. The patient has been ordered heart healthy diet, out of bed, CHANCE stockings, SCDs. The patient updated and explained about her condition, diagnosis, further need for diagnostic and therapeutic interventions, discussed and explained to the patient at length and all questions and concerns answered. The patient's condition, diagnosis, further management and test results discussed with the patient's daughter, Tamar, via the phone. All questions and concerns answered to their satisfaction. Dictated and electronically signed, not read. Juancho Yu MD cc: [id number] TT: 11/23/2016 10:24:45 Confirmation # [id number] Dictation # [id number] tn [email or web address]
--- NOTE | 2016-11-23 15:32 | PN ---
DATE: 11/23/2016 SUBJECTIVE: The patient denies any dizziness or palpitation. She is ambulatory. No reported ventri cular arrhythmia. PHYSICAL EXAMINATION: VITAL SIGNS: Blood pressure 149/78, heart rate 83, temperature 97.7, respirations 20. HEENT: Normocephalic. NECK: No JVD. CHEST: Clear. HEART: S1, S2 regular. EXTREMITIES: No edema. Echocardiographic study revealed normal ejection fraction and normal, right ventricular systolic pres sure as well as normal diastolic pressure. ASSESSMENT: 1. Dizziness and near syncope. 2. Shortness of breath at time of presentation. The patient's left ventricular systolic function as well as diastolic function is reported to be normal on echocardiograph study. 3. History of Chago's disease. 4. Hypertension. 5. History of tongue cancer, status post localized dissection. RECOMMENDATIONS: Continue current Cardizem-CD 180 mg once a day, Cozaar 100 mg once a day, aspirin 3 25 mg once a day, Lipitor at 40 mg once a day, reduce Lovenox to 30 mg subcutaneously once a day and discontinue Plavix as there is no clear neurological indication. I will follow the 24 hour Holter jovanny landaverde. Rob Larios MD cc: [id number] TT: 11/23/2016 15:32:19 Confirmation # [id number] Dictation # [id number]
[2016-11-24] MEDS: Pantoprazole 40 mg EC Tab PO SCH (05:48)
[2016-11-24] MEDS: Aspirin 325 mg EC Tablets PO SCH (10:45)
[2016-11-24] MEDS: Enoxaparin 80 mg Syringe SC SCH ×2 (10:46→10:49)
[2016-11-24] MEDS: diltiaZEM 180 mg/24 Hours CD Cap PO SCH (10:46)
--- NOTE | 2016-11-24 14:22 | PN ---
DATE: 11/24/2016 The patient denies any shortness breath, chest pain or dizziness. PHYSICAL EXAMINATION: VITAL SIGNS: Blood pressure 160/76, heart rate 60, temperature 97.6, respiration 18. HEENT: Normocephalic. NECK: No JVD. CHEST: Clear. HEART: S1, S2 regular. EXTREMITIES: No edema. ASSESSMENT: 1. Dizziness and near syncope. 2. Shortness of breath. 3. Chest pain, rule out underlying ischemic heart disease. RECOMMENDATIONS: Continue current Cardizem-CD at 180 mg once a day, Cozaar at 100 mg once a day, asp irin 325 mg once a day, Lipitor at 40 mg once a day, Lovenox at 30 mg subcutaneously once a day, Plav ix 75 mg once a day. Case was discussed with Dr. Yu. The plan is for the patient to undergo card iac catheterization tomorrow. Rob Larios MD cc: [id number] TT: 11/24/2016 14:21:16 Confirmation # [id number] Dictation # [id number] en
--- NOTE | 2016-11-24 15:31 | PN ---
DATE: 11/24/2016 The patient is seen now in room 265, bed 1. The patient is seen lying in the bed watching TV. Overnight nurses' notes were reviewed. No adverse events were documented except the change of the room. The patient's telemetry shows sinus rhythm. PHYSICAL EXAMINATION: VITAL SIGNS: T-max afebrile, heart rate 60-69 to 79, normal sinus rhythm. Blood pressure in the last 24 hours ranging from 150/81, 176/88, 186-91, 159/64 , 169/83, 160/70. Respiration 18. O2 sat is 96% to 98%. HEAD: Normocephalic, atraumatic. HEENT: Shows pink conjunctivae, anicteric sclerae. No oropharyngeal lesion. NECK: No neck rigidity. Soft carotid bruit. CHEST: Kyphosis. LUNGS: Shows no rales, crackles, or wheezing. CARDIOVASCULAR: Shows S1, S2, regular rhythm. ABDOMEN: Soft, positive bowel sounds. GENITALIA: Female. RECTAL: Deferred. EXTREMITIES: Shows no pitting edema, no calf tenderness, no Homans sign. Positive CHANCE stockings. MUSCULOSKELETAL: Shows a body mass index of 28.3. NEUROLOGIC: Cranial nerves II-XII intact. GAIT: Examination could not be tested. PSYCHIATRIC: Negative for anxiety. Negative for depression. Negative for auditory hallucinations. Negative for suicidal or homicidal ideation. Positive hearing deficit noted. DIAGNOSTICS: None from 11/24. IMAGING: None from 11/24. EKG from today was reviewed, which shows sinus rhythm, questionable right ventricular conduction delay versus incomplete right bundle branch block. The patient was seen by cardiology today. Discussed the case with Dr. Larios. The patient is to undergo cardiac catheterization tomorrow as per Dr. Lr's recommendation. EEG was noted. IMPRESSION AND PLAN: 1. Syncope. 2. Questionable non-ST elevation myocardial infarction with elevated and indeterminate troponin. 3. Left ventricular ejection fraction of greater than 60%. 4. Trace mitral and trace tricuspid regurgitation. 5. Hypertension. 6. History of severe noncompliance and poor compliance. 7. History of tongue carcinoma with partial glossectomy. 8. Hypovitaminosis D. 9. History of hypothyroidism. 10. History of hypovitaminosis D. 11. Bilateral 20% to 39% proximal internal carotid artery stenosis. 12. Questionable incomplete right bundle branch block versus right ventricular conduction delay. 1. Syncope, etiology undetermined. 2. Questionable non-ST elevation myocardial infarction with elevated and indeterminate troponin. 3. Paroxysmal supraventricular tachycardia. 4. Hypertension with episodic uncontrolled hypertension. 5. History of hypothyroidism. 6. Hypokalemia. 7. Bilateral 20-39% proximal internal carotid artery stenosis. 8. Questionable incomplete right bundle branch block versus right ventricular conduction delay. 9. History of poor compliance and noncompliance. 10. History of paroxysmal supraventricular tachycardia, history of hypothyroidism, history of tongue carcinoma, status post glossectomy history of hearing dysfunction, history of sleep apnea. 11. Hypokalemia. 1. Syncope, etiology undetermined. 2. Indeterminate troponin. 3. History of paroxysmal supraventricular tachycardia. 4. History of poor compliance and noncompliance. 5. Hypertension. 6. Indeterminate troponin. 7. History of hypothyroidism. 8. Hypokalemia. 9. Bilateral 20%-39% proximal internal carotid artery stenosis. 10. Questionable incomplete right bundle branch block versus right ventricular conduction delay. 11. History of poor compliance. 1. Syncope with shortness of breath, etiology undetermined. 2. History of paroxysmal supraventricular tachycardia, noncompliant with medication. 3. Uncontrolled hypertension. 4. Hypokalemia. 5. Questionable chronic left basal ganglia lacunar infarct. 6. Bilateral 20%-39% proximal internal carotid artery stenosis. 7. Questionable incomplete right bundle-branch block versus right ventricular conduction delay. 8. History of poor compliance. 9. History of lingular carcinoma status post partial glossectomy. 10. Hypokalemia. 11. History of hypothyroidism, history of dyslipidemia, history of hearing deficit, history of paroxysmal supraventricular tachycardia, history of dyslipidemia, history of hypothyroidism, history of tongue carcinoma, history of hypothyroidism, history of hearing deficit, history of questionable chronic obstructive pulmonary disease, history of pneumonia. PLAN: At this time, the patient is scheduled for cardiac catheterization as per Dr. Lr in the a.m. CURRENT MEDICATIONS: 1. Cardizem-CD 180 grams daily. 2. Cozaar 100 mg daily. 3. Aspirin 325 mg daily. 4. Lipitor 40 mg daily. 5. Lovenox, changed by Dr. Larios to 30 mg subQ daily. 6. Plavix 75 mg daily. 7. Protonix 40 mg daily. 8. Tylenol 650 q.4 p.r.n. Repeat EKG ordered. EEG was done, reviewed. The patient's diagnostic lab data , imaging studies, echo, EKG and all of the imaging studies were reviewed and explained to the patient in layman's language. All questions and concerns were answered. The patient is agreeable to proceed for cardiac catheterization in the a.m. The patient's further management will be dependent upon the patient's clinical condition, hemodynamic status, and as per patient's response to therapeutic intervention, as per patient's diagnostic test results and as per recommendation by cardiology after the cardiac catheterization results, which was explained to the patient. Dictated and electronically signed, not read. Juacnho Yu MD cc: [id number] TT: 11/24/2016 15:31:10 Confirmation # [id number] Dictation # [id number] shantell TILLMAN
--- NOTE | 2016-11-24 22:07 | CARD ---
APPROVED REPORT EKG Measurement Heart [id number] NC 150P10 [id number] <Conclusion> Sinus bradycardia RSR' or QR pattern in V1 suggests right ventricular conduction delay Cannot rule out Anterior infarct, age undetermined Abnormal ECG
[2016-11-25 01:08] VITALS: O2SAT 97
[2016-11-25] MEDS: Pantoprazole 40 mg EC Tab PO SCH (05:59)
[2016-11-25 06:54] VITALS: RESP 20
[2016-11-25] MEDS: Aspirin 325 mg EC Tablets PO SCH ×2 (08:41→11:34)
[2016-11-25] MEDS ORDERED: Lidocaine 2% Inj (20ml) ONE (09:40)
[2016-11-25] MEDS ORDERED: Midazolam 2 MG/2 ML VIAL ONE ×2 (09:40→10:13)
[2016-11-25] MEDS ORDERED: Iodixanol 320 MG/ML 200 ML BOTTLE IV ONE (09:41)
[2016-11-25] MEDS ORDERED: Iodixanol 320 MG/ML 100 ML BOTTLE IV ONE (09:41)
[2016-11-25] MEDS ORDERED: Sodium Chloride 0.9% 1,000 ML IV SCH (11:00)
--- NOTE | 2016-11-25 11:13 | CARDCATH ---
PROCEDURE DATE: 11/25/2016 HISTORY: The patient is a 76-year-old woman who presents with syncope. Her troponins were found to be mildly elevated. Because of this, cardiac catheterization was recommended. PROCEDURE: Left heart catheterization with coronary angiography and left ventriculogram. The right femoral artery was cannulated with a 6-Bengali sheath. There were no complications. Findings on catheterization revealed a left ventricle that contracted normally. Estimated ejection f raction is 65%. Her coronary anatomy revealed a left main artery that was unremarkable. The LAD revealed mild intimal irregularities without significant stenosis. The second diagonal vessel revealed a proximal 50% stenosis and ____ 50% stenosis with FROY 3 flow. The circumflex artery and obtuse marginal branch revealed intimal irregularities without significant stenosis. The right coronary artery was selectively cannulized and found to be a codominant vessel. The RCA re vealed intimal irregularities without significant stenoses. Angio-Seal was used to close the femoral artery site. The patient tolerated the procedure well. IN SUMMARY: The procedure revealed mild coronary artery disease with a 50% stenosis in the second di agonal vessel. Left ventricular function is normal. Given these findings, the patient's treatment would be baby aspirin daily as well as statin therapy w ith a cardiac risk reduction program. Flip Lr MD cc: [id number] TT: 11/25/2016 11:07:48 la 11/25/2016 10:12:10
[2016-11-25] MEDS: diltiaZEM 180 mg/24 Hours CD Cap PO SCH (11:34)
[2016-11-25] MEDS: Enoxaparin 80 mg Syringe SC SCH (11:35)
[2016-11-25 11:53] VITALS: TEMP 98.4
--- NOTE | 2016-11-25 12:21 | DS ---
The patient is seen in room 265, bed 1. The patient is lying in the bed post- cardiac catheterization. The patient does not offer any specific complaint. Overnight nurse's notes were reviewed. No adverse events documented. PHYSICAL EXAMINATION: VITAL SIGNS: T-max 98.1. Telemetry shows sinus rhythm, heart rate 70s and 60s beats per minute. Blood pressure 142/8, 148/65, 116/76, 156/89, 169/73. Respiration 20, O2 sat 97%. HEAD: Normocephalic, atraumatic. HEENT: Shows pink conjunctivae, anicteric sclerae. No oropharyngeal lesion. No oropharyngeal lesion except for partial left-sided glossectomy. NECK: No neck rigidity. CHEST: Kyphosis. LUNGS: Shows no rales, crackles, or wheezing. CARDIOVASCULAR: S1, S2, regular rhythm. ABDOMEN: Soft, positive bowel sounds. GENITALIA: Female. Positive right groin dressing. Positive palpable pulses. MUSCULOSKELETAL: Shows a body mass index of 28. NEUROLOGIC: Cranial nerves II-XII limited. GAIT: Not tested as patient is lying in the bed post cardiac catheterization and patient is on bedrest post cardiac catheterization. MUSCULOSKELETAL: Shows a body mass index of 28. Cardiac catheterization which was done today shows proximal 50% stenosis of the diagonal 2-vessel. Left ventricular ejection fraction 65% on cardiac catheterization. Summary on the cardiac cath, 50% stenosis of the proximal diagonal 2-vessel with normal ejection fraction. Recommendation, baby aspirin, statin and cardiac ____ program, which was explained to the patient. FINAL IMPRESSION, PLAN, AND DISCHARGE DIAGNOSES: 1. Nonobstructive coronary artery disease with 50% stenosis of the proximal diagonal 2-vessel blood vessel. 2. Left ventricular ejection fraction of 65% on cardiac catheterization. 3. History of poor compliance and noncompliance. 4. Uncontrolled hypertension. 5. History of paroxysmal supraventricular tachycardia. 6. Questionable and possible non-ST elevation myocardial infarction with elevated troponin and indeterminate troponin. 7. History of hypothyroidism. 8. History of dyslipidemia. 9. History of poor compliance. 10. Sinus bradycardia. 11. Possible incomplete right bundle branch block versus right ventricular conduction delay. 1. Syncope. 2. Questionable non-ST elevation myocardial infarction with elevated and indeterminate troponin. 3. Left ventricular ejection fraction of greater than 60%. 4. Trace mitral and trace tricuspid regurgitation. 5. Hypertension. 6. History of severe noncompliance and poor compliance. 7. History of tongue carcinoma with partial glossectomy. 8. Hypovitaminosis D. 9. History of hypothyroidism. 10. History of hypovitaminosis D. 11. Bilateral 20% to 39% proximal internal carotid artery stenosis. 12. Questionable incomplete right bundle branch block versus right ventricular conduction delay. 1. Syncope, etiology undetermined. 2. Questionable non-ST elevation myocardial infarction with elevated and indeterminate troponin. 3. Paroxysmal supraventricular tachycardia. 4. Hypertension with episodic uncontrolled hypertension. 5. History of hypothyroidism. 6. Hypokalemia. 7. Bilateral 20-39% proximal internal carotid artery stenosis. 8. Questionable incomplete right bundle branch block versus right ventricular conduction delay. 9. History of poor compliance and noncompliance. 10. History of paroxysmal supraventricular tachycardia, history of hypothyroidism, history of tongue carcinoma, status post glossectomy history of hearing dysfunction, history of sleep apnea. 11. Hypokalemia. 1. Syncope, etiology undetermined. 2. Indeterminate troponin. 3. History of paroxysmal supraventricular tachycardia. 4. History of poor compliance and noncompliance. 5. Hypertension. 6. Indeterminate troponin. 7. History of hypothyroidism. 8. Hypokalemia. 9. Bilateral 20%-39% proximal internal carotid artery stenosis. 10. Questionable incomplete right bundle branch block versus right ventricular conduction delay. 11. History of poor compliance. 1. Syncope with shortness of breath, etiology undetermined. 2. History of paroxysmal supraventricular tachycardia, noncompliant with medication. 3. Uncontrolled hypertension. 4. Hypokalemia. 5. Questionable chronic left basal ganglia lacunar infarct. 6. Bilateral 20%-39% proximal internal carotid artery stenosis. 7. Questionable incomplete right bundle-branch block versus right ventricular conduction delay. 8. History of poor compliance. 9. History of lingular carcinoma status post partial glossectomy. 10. Hypokalemia. 11. History of hypothyroidism, history of dyslipidemia, history of hearing deficit, history of paroxysmal supraventricular tachycardia, history of dyslipidemia, history of hypothyroidism, history of tongue carcinoma, history of hypothyroidism, history of hearing deficit, history of questionable chronic obstructive pulmonary disease, history of pneumonia. PLAN: At this time, the patient will be on bedrest until 5:00 p.m. today post- cardiac catheterization. After that, patient has been cleared for discharge by cardiology. The patient is to be discharged on following medications: 1. Thyroid Franklin 15 ____ daily. 2. Cardizem-CD 180 mg daily. 3. Cozaar 100 mg p.o. daily. 4. Lipitor 40 mg daily. 5. Protonix 40 mg daily. 6. The patient is to resume Singulair 10 mg and Ventolin HFA inhaler. The patient is discharged home with discharge followup with Dr. Yu within 1 week. Referral to [facility] home health aide, home PT. Discharge medications as per updated ambulatory orders which are sent to the patient's pharmacy electronically. During this hospitalization, patient was extensively explained about her diagnosis, test results, recommendation, treatment plan, outpatient followup plan, compliance with medication, diet and physician followup was extensively explained to the patient and the patient's daughter, Tamar. All questions and concerns answered to their satisfaction. The patient has been updated about her condition, diagnosis, treatment plan, management plan at length, which she acknowledged and understands. Time spent in the entire discharge process more than 45 minutes. Dictated and electronically signed, not read. Juancho Yu MD cc: [id number] TT: 11/25/2016 12:21:17 sn MTDD
[2016-11-25 15:52] VITALS: BP 139/73; PULSE 65
== END 2016-11-25 17:38 | disposition home or self-care (01) | DRG 281 ==
LOC: ED 04:10 → ERH 06:23 → 2RSO 10:22 → OBSVTOIN 11-22 14:31 → 2RNO 11-23 16:42
PROVIDERS: ADMIT Internal Medicine; ATTEND Internal Medicine
PROC: 4A023N7 Measurement of Cardiac Sampling and Pressure, Left Heart, Percutaneous Approach (ICD-10-PCS; principal; 2016-11-25)
PROC: B2111ZZ Fluoroscopy of Multiple Coronary Arteries using Low Osmolar Contrast (ICD-10-PCS; 2016-11-25)
PROC: B2151ZZ Fluoroscopy of Left Heart using Low Osmolar Contrast (ICD-10-PCS; 2016-11-25)
DX: I21.4 Non-ST elevation (NSTEMI) myocardial infarction (principal); I47.1 Supraventricular tachycardia; I11.9 Hypertensive heart disease without heart failure; R00.1 Bradycardia, unspecified; I08.1 Rheumatic disorders of both mitral and tricuspid valves; I25.10 Atherosclerotic heart disease of native coronary artery without angina pectoris; I25.9 Chronic ischemic heart disease, unspecified; I65.29 Occlusion and stenosis of unspecified carotid artery; K76.0 Fatty (change of) liver, not elsewhere classified; J44.9 Chronic obstructive pulmonary disease, unspecified; E55.9 Vitamin D deficiency, unspecified; E06.3 Autoimmune thyroiditis; E78.5 Hyperlipidemia, unspecified; E87.6 Hypokalemia; G47.30 Sleep apnea, unspecified; H91.90 Unspecified hearing loss, unspecified ear; Z79.899 Other long term (current) drug therapy; Z85.810 Personal history of malignant neoplasm of tongue; Z87.01 Personal history of pneumonia (recurrent); Z91.14 Patient's other noncompliance with medication regimen; Z91.19 Patient's noncompliance with other medical treatment and regimen; R40.2412 Glasgow coma scale score 13-15, at arrival to emergency department; M40.209 Unspecified kyphosis, site unspecified; I45.10 Unspecified right bundle-branch block; Z68.28 Body mass index [BMI] 28.0-28.9, adult; R55 Syncope and collapse

== ENCOUNTER 2016-11-28 16:51 | Observation (INO) | payer MEDICARE, BC ==
--- NOTE | 2016-11-28 17:32 | CP.PCM.PN ---
Subjective - Date & Time of Evaluation Date of Evaluation: 11/28/16 Time of Evaluation: 17:31 - Subjective Subjective: pt needs angiocath insertion. Assessment and Plan - Assessment and Plan (Free Text) Assessment: 24 guage angiocath inserted in rt forearm.
[2016-11-28 20:20] VITALS: BMI 28.3
[2016-11-28] MEDS ORDERED: Oxycodone/Acetaminophen 5/325 mg Tab PO PRN (20:47)
[2016-11-28] MEDS: diltiaZEM 180 mg/24 Hours CD Cap PO SCH (21:22)
[2016-11-28 21:27] LABS: HEMATOCRIT 34.3 % (36.0-48.0); MEAN CELL VOLUME 91.2 fL (80.0-105.0); MEAN CORPUSCULAR HEMOGLOBIN 31.4 pg (25.0-35.0); MEAN CORPUSCULAR HGB CONC 34.4 g/dl (31.0-37.0); MEAN PLATELET VOLUME 9.9 fl (7.0-11.0); RED CELL DISTRIBUTION WIDTH 14.8 % (11.5-14.5); WHITE BLOOD COUNT 8.7 10^3/ul (4.5-11.0)
[2016-11-28 21:37] LABS: INR 1.05 (0.93-1.08); PARTIAL THROMBOPLASTIN TIME 28.7 Seconds (23.7-30.8)
[2016-11-28 21:56] LABS: ALB/GLOB RATIO 1.1 (1.1-1.8); ALKALINE PHOSPHATASE 85 U/L (38-133); ALT/SGPT 42 U/L (7-56); AST/SGOT 44 U/L (15-39); BILIRUBIN,TOTAL 0.7 mg/dL (0.2-1.3); BLOOD UREA NITROGEN 15 mg/dL (7-21); CALCIUM 9.1 mg/dL (8.4-10.5); CARBON DIOXIDE 28 mmol/L (21-33); CHLORIDE 103 mmol/L (98-107); GFR AFRICAN-AMERICAN > 60; GLUCOSE,RANDOM 87 mg/dL (70-110); POTASSIUM 3.5 mmol/L (3.6-5.0); SODIUM 139 mmol/L (132-148); TOTAL PROTEIN 7.6 g/dL (5.8-8.3)
[2016-11-28] MEDS ORDERED: Magnesium Oxide 400 mg Tab UD PO STA (22:11)
[2016-11-28] MEDS ORDERED: Potassium Chloride 20 mEq ER Tab PO STA (22:11)
--- NOTE | 2016-11-28 22:22 | CP.PCM.CON ---
<Ani Davalos - Last Filed: 11/28/16 22:12> History of Present Illness - History of Present Illness History of Present Illness: Surgery Consult: Dr. Leyva Pt is a 76F with PMHx significant for HTN and tongue cancer who presented to [facility] on 11/22/16 s/p syncopal episode. During that admission pt was worked up by cardio and a cardiac cath was performed on 11/25. Pt was discharged home that same day, however, the next day she noticed swelling and redness in her right groin. Pt attempted elevating her legs to help alleviate her symptoms, but the swelling increased and area became painful as the day progressed. Pt went to her PMD today who sent her to the ER for further evaluation/treatment. In the ER, a CT abdomen/pelvis were performed and pt was found to have a large right groin hematoma. Surgery and IR were consulted to evaluate. Currently, pt is status post US guided thrombin injection of the R groin hematoma by Dr. Quintero. She states she feels ok and denies any complaints. She admits to feeling some soreness in her R groin. Denies N/V, F/C, dizziness, chest pain or SOB. PMHx: HTN, tongue cancer PSHx: resection of tongue tumor SocialHx: denies smoking/EtOH Allergies: Penicillin, gluten Review of Systems - Review of Systems All systems: reviewed and no additional remarkable complaints except (as per HPI ) Past Patient History - Infectious Disease Hx of Infectious Diseases: None - Tetanus Immunizations Tetanus Immunization: Unknown - Past Social History Smoking Status: Never Smoked - CARDIAC Hx Cardiac Disorders: Yes Hx Hypercholesterolemia: Yes (borderline as per pt) Hx Hypertension: Yes (borderline as per pt) - PULMONARY Hx Sleep Apnea: Yes (pt uses c-pap at night) - NEUROLOGICAL Hx Dizziness: Yes - HEENT Hx Deafness: Yes (hearing aids x2) Other/Comment: judi turner - RENAL Hx Chronic Kidney Disease: No - HEMATOLOGICAL/ONCOLOGICAL Hx Cancer: Yes (tongue with surgery, no chemo or radiation) - INTEGUMENTARY Hx Dermatological Problems: No - MUSCULOSKELETAL/RHEUMATOLOGICAL Hx Falls: No - GENITOURINARY/GYNECOLOGICAL Other/Comment: 5 pregnancies with 1 miscarriage - PSYCHIATRIC Hx Psychophysiologic Disorder: No Hx Depression: No Hx Emotional Abuse: No Hx Physical Abuse: No Hx Substance Use: No - SURGICAL HISTORY Hx Surgeries: Yes (lasik and tongue) Hx Cardiac Catheterization: Yes - ANESTHESIA Hx Anesthesia: Yes Hx Anesthesia Reactions: No Hx Malignant Hyperthermia: No Meds Allergies/Adverse Reactions: Allergies Allergy/AdvReac Type Severity Reaction Status Date / Time Penicillins Allergy RASH Verified 12/05/16 09:37 gluten AdvReac DIARRHEA Verified 12/05/16 09:37 - Medications Medications: Current Medications Acetaminophen (Tylenol 325mg Tab) 650 mg PO Q4H PRN PRN Reason: Pain, Mild (1-3) Atorvastatin Calcium (Lipitor) 40 mg PO DIN [facility] Diltiazem HCl (Cardizem Cd) 180 mg PO DAILY [facility] Last Admin: 11/28/16 21:22 Dose: 180 mg Losartan Potassium (Cozaar) 100 mg PO DAILY [facility] Last Admin: 11/28/16 21:24 Dose: 100 mg Magnesium Oxide (Mag-Ox) 400 mg PO STAT STA Stop: 11/28/16 22:12 Montelukast Sodium (Singulair) 10 mg PO DAILY [facility] Oxycodone/Acetaminophen (Percocet 5/325 Mg Tab) 1 tab PO Q6H PRN PRN Reason: Pain, moderate (4-7) Stop: 12/01/16 20:48 Pantoprazole Sodium (Protonix Ec Tab) 40 mg PO 0630 [facility] Potassium Chloride (K-Dur 20 Meq Er Tab) 40 meq PO STAT STA Stop: 11/28/16 22:12 Physical Exam - Constitutional Appears: Well, No Acute Distress - Head Exam Head Exam: ATRAUMATIC, NORMOCEPHALIC - Eye Exam Eye Exam: Normal appearance - ENT Exam ENT Exam: Mucous Membranes Moist - Respiratory Exam Respiratory Exam: NORMAL BREATHING PATTERN - Cardiovascular Exam Cardiovascular Exam: RRR - GI/Abdominal Exam GI & Abdominal Exam: Soft. absent: Distended, Tenderness - Extremities Exam Extremities exam: Positive for: tenderness (around hematoma ), pedal pulses present. Negative for: pedal edema Additional comments: Right groin with swelling and ecchymosis extending to the anteriolateral thigh, dressing s/p thrombin injection C/D/I - Neurological Exam Neurological exam: Alert, Oriented x3 - Skin Skin Exam: Dry, Warm Results - Vital Signs Recent Vital Signs: Last Vital Signs Temp 98.7 F 11/28/16 19:40 Pulse 95 H 11/28/16 21:22 Resp 20 11/28/16 19:40 BP 173/87 H 11/28/16 21:22 Pulse Ox - Labs Result Diagrams: 11/28/16 21:20 11/28/16 21:20 Labs: Laboratory Results - last 24 hr 11/28/16 11/28/16 11/28/16 21:20 21:20 21:20 WBC 8.7 D RBC 3.76 Hgb 11.8 L Hct 34.3 L MCV 91.2 MCH 31.4 MCHC 34.4 RDW 14.8 H Plt Count 198 MPV 9.9 PT 11.3 INR 1.05 APTT 28.7 Sodium 139 Potassium 3.5 L Chloride 103 Carbon Dioxide 28 Anion Gap 12 BUN 15 Creatinine 0.8 Est GFR ( Amer) > 60 Est GFR (Non-Af Amer) > 60 Random Glucose 87 Calcium 9.1 Total Bilirubin 0.7 AST 44 H ALT 42 Alkaline Phosphatase 85 Total Protein 7.6 Albumin 4.0 Globulin 3.6 Albumin/Globulin Ratio 1.1 - Imaging and Cardiology CT scan - abdomen Status: Image reviewed by me, Report reviewed by me Assessment & Plan - Assessment and Plan (Free Text) Assessment: 76F with R groin hematoma s/p cardiac cath on 11/25 Plan: - no surgical intervention planned at this time as pt is s/p thrombin injection by Dr. Flip Quintero - we will observe hematoma, and monitor for expansion - monitor H/H - encourage ambulation with PT - d/w Dr. Autumn Davalos, PGY-2 Surgery <Wallace Leyva - Last Filed: 02/26/17 22:24> Results - Vital Signs Recent Vital Signs: Last Vital Signs Temp 98.1 F 11/29/16 12:00 Pulse 76 11/29/16 12:00 Resp 20 11/29/16 12:00 BP 152/80 H 11/29/16 12:00 Pulse Ox 96 11/29/16 05:31 - Labs Result Diagrams: 11/29/16 11:00 11/28/16 21:20 Assessment & Plan - Assessment and Plan (Free Text) Plan: Patient was seen and examined by me. I agree with assessment and plan as per resident's note. - Date & Time Date: 11/28/16 Time: 21:15
[2016-11-29 05:33] VITALS: O2SAT 96
[2016-11-29] MEDS ORDERED: Pantoprazole 40 mg EC Tab PO SCH (07:30)
--- NOTE | 2016-11-29 09:14 | CP.PCM.PN ---
<Keily Mendoza - Last Filed: 11/29/16 09:09> Subjective - Date & Time of Evaluation Date of Evaluation: 11/29/16 Time of Evaluation: 07:30 - Subjective Subjective: General Surgery Dr. Leyva Pt S&E @bedside. NAEO. US-guided thrombin injection by Dr. Quintero yesterday. pt tolerated procedure well w/ no complications. Pt has no complaints. has been on bed rest s/p procedure. Objective - Vital Signs/Intake and Output Vital Signs (last 24 hours): Temp Pulse Resp BP Pulse Ox 98 F 75 18 149/73 96 11/29/16 05:31 11/29/16 05:31 11/29/16 05:31 11/29/16 05:31 11/29/16 05:31 Intake and Output: 11/29/16 11/29/16 06:59 18:59 Intake Total 480 Output Total 750 Balance -270 - Medications Medications: Current Medications Acetaminophen (Tylenol 325mg Tab) 650 mg PO Q4H PRN PRN Reason: Pain, Mild (1-3) Atorvastatin Calcium (Lipitor) 40 mg PO DIN [facility] Diltiazem HCl (Cardizem Cd) 180 mg PO DAILY [facility] Last Admin: 11/28/16 21:22 Dose: 180 mg Losartan Potassium (Cozaar) 100 mg PO DAILY [facility] Last Admin: 11/28/16 21:24 Dose: 100 mg Montelukast Sodium (Singulair) 10 mg PO DAILY [facility] Oxycodone/Acetaminophen (Percocet 5/325 Mg Tab) 1 tab PO Q6H PRN PRN Reason: Pain, moderate (4-7) Stop: 12/01/16 20:48 Pantoprazole Sodium (Protonix Ec Tab) 40 mg PO ACB [facility] Last Admin: 11/29/16 08:02 Dose: 40 mg - Labs Labs: AM CBC pending - Constitutional Appears: Non-toxic, No Acute Distress - Head Exam Head Exam: NORMAL INSPECTION - Eye Exam Eye Exam: Normal appearance - ENT Exam ENT Exam: Mucous Membranes Moist - Respiratory Exam Respiratory Exam: NORMAL BREATHING PATTERN. absent: Accessory Muscle Use, Respiratory Distress - GI/Abdominal Exam GI & Abdominal Exam: Soft. absent: Distended, Tenderness - Extremities Exam Additional comments: non-expanding hematoma over R groin. pressure dressing c/d/i TTP over entry site. - Neurological Exam Neurological Exam: Alert, Awake, Oriented x3 - Psychiatric Exam Psychiatric exam: Normal Affect, Normal Mood - Skin Skin Exam: Dry, Intact, Warm Assessment and Plan - Assessment and Plan (Free Text) Assessment: 76 y/o F s/p thrombin injection 2/2 pseudoaneurysm/hematoma 2/2 cardiac cath - f/u AM labs - monitor H/H - OOB to chair/Amb per Dr. Quintero - continue medical management Pt discussed w/ Dr. Autumn Mendoza DO PGY1 <Wallace Leyva - Last Filed: 02/26/17 22:26> Objective - Vital Signs/Intake and Output Vital Signs (last 24 hours): Temp Pulse Resp BP Pulse Ox 98.1 F 76 20 152/80 H 96 11/29/16 12:00 11/29/16 12:00 11/29/16 12:00 11/29/16 12:00 11/29/16 05:31 - Labs Labs: 11/29/16 11:00 11/28/16 21:20 PT 11.3 Seconds (9.9-11.8) 11/28/16 21:20 INR 1.05 (0.93-1.08) 11/28/16 21:20 APTT 28.7 Seconds (23.7-30.8) 11/28/16 21:20 Assessment and Plan - Assessment and Plan (Free Text) Plan: Patient was seen and examined by me. I agree with assessment and plan as per resident's note.
[2016-11-29] MEDS: diltiaZEM 180 mg/24 Hours CD Cap PO SCH (10:13)
[2016-11-29 11:20] LABS: HEMATOCRIT 35.2 % (36.0-48.0); MEAN CELL VOLUME 91.4 fL (80.0-105.0); MEAN CORPUSCULAR HEMOGLOBIN 30.9 pg (25.0-35.0); MEAN CORPUSCULAR HGB CONC 33.8 g/dl (31.0-37.0); MEAN PLATELET VOLUME 10.5 fl (7.0-11.0); RED CELL DISTRIBUTION WIDTH 14.7 % (11.5-14.5); WHITE BLOOD COUNT 7.7 10^3/ul (4.5-11.0)
--- NOTE | 2016-11-29 12:26 | CON ---
DATE: 11/29/2016 HISTORY OF PRESENT ILLNESS: The patient presented with a hematoma post-catheterization. She was fou nd to have a pseudoaneurysm which was injected with fibrin. Repeat ultrasound found today revealed thrombosed pseudoaneurysm. There is no vascular compromise. PAST MEDICAL HISTORY: The patient's past medical history is notable for a recent non-STEMI which was due to stenosis of a second diagonal vessel stenosis. The patient is chest pain free. She is on diltiazem for a documented history of SVT as well as hypercholesterolemia and hypertension. SOCIAL HISTORY: Negative smoker. REVIEW OF SYSTEMS: A 14-point review of systems was reviewed. No cardiac symptomatology is noted. She was anxious about it the appearance of the ecchymoses. PHYSICAL EXAMINATION: VITAL SIGNS: Blood pressure 141/68, heart rate is in the 70s, normal sinus rhythm. NECK: Negative JVD. LUNGS: Without rales. HEART: Reveals S1, S2. EXTREMITIES: Without edema. Right groin site shows marked ecchymoses without active bleeding. LABORATORIES: BUN and creatinine are unremarkable. The hemoglobin is stable; 11.8 yesterday, 11.9 today. Preliminary repeat ultrasound reveals a thrombosed pseudoaneurysm. IMPRESSION: Given these findings. 1. The patient had successful resolution of the pseudoaneurysm with fibrin injection. 2. A recent non-ST elevation myocardial infarction. 3. 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 4. Hypertension. 5. Hypercholesterolemia. Given these findings, I have discussed this with the patient in detail. Her concerns were all answer ed. We will discontinue telemetry today. If the official ultrasound reading reveals a thrombosed pseudoa neurysm, the patient can be discharged with outpatient followup. Flip Lr MD cc: [id number] TT: 11/29/2016 12:25:50 Confirmation # [id number] Dictation # [id number]
[2016-11-29 12:50] VITALS: BP 152/80; PULSE 76; RESP 20; TEMP 98.1
--- NOTE | 2016-11-29 14:17 | DS ---
The patient was seen in room 260, bed 2. I was informed by Dr. Flip Quintero that patient is cleared f or discharge after the repeat ultrasound this morning shows resolution of the right femoral artery ps eudoaneurysm. The patient was cleared for discharge by Dr. Flip Quintero. Overnight, patient was seen by the surgical services coordinator and this morning, patient was seen by Dr. Flip Lr. The patient at present has been cleared for discharge. DISCHARGE FOLLOWUP: With Dr. Yu, Dr. Flip Quintero, Dr. Leyva and Dr. Flip Lr within 1 wee k. The patient was advised rest, limited activity, no strenuous activity, followup as dictated above . The patient was advised to resume her Cardizem-CD 180 mg daily, Lipitor 40 mg daily, Cozaar 100 mg daily, thyroid [place] 15 or 30 mg p.o. daily. The patient is to resume her Singulair 10 mg daily pr escribed by the mine patrol, Ventolin HFA inhaler prescribed by pulmonology. The patient was also advised to resume use of her CPAP. The patient was also advised Protonix 40 mg p.o. daily. The alma ent was again advised and reinforced and counseled about compliance with medication, diet, restrictio ns, activity had followup with physicians as patient has severe history of noncompliance and poor com pliance. Dictated and electronically signed, not read. Juancho Yu MD cc: [id number] TT: 11/29/2016 14:17:03 en
--- NOTE | 2016-11-29 14:17 | US ---
PROCEDURE: Duplex arterial ultrasound of the right groin. HISTORY: Status post right common femoral artery pseudoaneurysm thrombin injection. Evaluate for recanalization. PHYSICIAN(S): Flip Quintero MD. FINDINGS: The right common femoral artery pseudoaneurysm remains thrombosed. A 2 cm hematoma is visualized. The right common femoral artery is patent. The right common femoral vein is patent. IMPRESSION: 1. Thrombosed right common femoral artery pseudoaneurysm post thrombin injection. No sonographic evidence of recanalization.
--- NOTE | 2016-11-29 14:25 | HP ---
The patient is a 76-year-old female who came to the office yesterday for post discharge followup after a 11/25 discharge. The patient complained of 1 -day history of right groin, right upper thigh swelling and bluish discoloration and pain in the area. The patient was seen and examined. In the area, patient was found to have a large area of skin ecchymosis on the right groin and right upper proximal thigh. The patient had tenderness and swelling of the area. The patient was sent right away to the Emergency Room. The patient was sent for a stat ultrasound of the groin. The patient was sent . The patient was sent for a stat CAT scan and right groin ultrasound. CAT scan shows right proximal thigh and upper thigh hematoma and swelling. 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 The patient was seen right away by Dr. Flip Quintero, interventional radiology. The patient underwent an ultrasound-guided thrombin injection of the right femoral artery pseudoaneurysm. The patient was then later on admitted to for overnight observation. The patient's code status is full code. Living will, advanced directive none. The patient's vital signs reviewed. The patient's past medical history, past surgical history, social history, occupational history, medication history, menstrual history, all above history, please review the details of them below as patient was just discharged 2 days ago from [facility]. Copied To: Attending MD: Gigi RODRIGUEZ,Juancho Short The patient is a 76-year-old very poorly compliant female who does not follow up regularly in the office and does not take prescribed medication, came to the Emergency Room by [facility] ambulance after, according to the triage note, the patient got up to go to the bathroom and collapsed on the floor with loss of consciousness, and the patient developed shortness of breath after collapsing. The patient had shortness of breath with loss of consciousness while going towards the bathroom. REVIEW OF SYSTEMS: A 13-system review was done. Pertinent positives and negatives dictated above. CODE STATUS: Full code. LIVING WILL AND ADVANCED DIRECTIVE: None. ALLERGIES: PENICILLIN AND GLUTEN. Height is 5 feet 3 inches. Weight is 158. BMI is 28. HOME MEDICATIONS: The patient stated that she is only taking Chelsea thyroid 15 ____. The patient is not taking Cardizem CD 180. The patient is not taking statins. The patient is not taking aspirin. OCCUPATIONAL HISTORY: Disabled. MENSTRUAL HISTORY: Postmenopausal. SOCIAL HISTORY: Denies substance abuse. Denies alcohol. Denies smoking, denies drug use, denies communicable transmissible disease. FAMILY HISTORY: Not available. 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 The patient's past medical history is also significant for history of atelectasis, pneumonia, history of incomplete right bundle-branch block, history of pneumonia. The patient's past medical history is also significant for status post partial glossectomy, history of lingular tongue carcinoma, history of hepatic steatosis, history of systemic inflammatory response syndrome , history of elevated D-dimer in the past, history of nonspecific mediastinal lymphadenopathy, history of hypothyroidism, history of cardiac catheterization in 2011 with normal ejection fraction 70% with normal coronaries. Incomplete right bundle-branch block. The patient's EEG, which was done in 07/2015 was negative and normal EEG. 1. Nonobstructive coronary artery disease with 50% stenosis of the proximal diagonal 2-vessel blood vessel. 2. Left ventricular ejection fraction of 65% on cardiac catheterization. 3. History of poor compliance and noncompliance. 4. Uncontrolled hypertension. 5. History of paroxysmal supraventricular tachycardia. 6. Questionable and possible non-ST elevation myocardial infarction with elevated troponin and indeterminate troponin. 7. History of hypothyroidism. 8. History of dyslipidemia. 9. History of poor compliance. 10. Sinus bradycardia. 11. Possible incomplete right bundle branch block versus right ventricular conduction delay. 1. Syncope. 2. Questionable non-ST elevation myocardial infarction with elevated and indeterminate troponin. 3. Left ventricular ejection fraction of greater than 60%. 4. Trace mitral and trace tricuspid regurgitation. 5. Hypertension. 6. History of severe noncompliance and poor compliance. 7. History of tongue carcinoma with partial glossectomy. 8. Hypovitaminosis D. 9. History of hypothyroidism. 10. History of hypovitaminosis D. 11. Bilateral 20% to 39% proximal internal carotid artery stenosis. 12. Questionable incomplete right bundle branch block versus right ventricular conduction delay. 1. Syncope, etiology undetermined. 2. Questionable non-ST elevation myocardial infarction with elevated and indeterminate troponin. 3. Paroxysmal supraventricular tachycardia. 4. Hypertension with episodic uncontrolled hypertension. 5. History of hypothyroidism. 6. Hypokalemia. 7. Bilateral 20-39% proximal internal carotid artery stenosis. 8. Questionable incomplete right bundle branch block versus right ventricular conduction delay. 9. History of poor compliance and noncompliance. 10. History of paroxysmal supraventricular tachycardia, history of hypothyroidism, history of tongue carcinoma, status post glossectomy history of hearing dysfunction, history of sleep apnea. 11. Hypokalemia. 1. Syncope, etiology undetermined. 2. Indeterminate troponin. 3. History of paroxysmal supraventricular tachycardia. 4. History of poor compliance and noncompliance. 5. Hypertension. 6. Indeterminate troponin. 7. History of hypothyroidism. 8. Hypokalemia. 9. Bilateral 20%-39% proximal internal carotid artery stenosis. 10. Questionable incomplete right bundle branch block versus right ventricular conduction delay. 11. History of poor compliance. 1. Syncope with shortness of breath, etiology undetermined. 2. History of paroxysmal supraventricular tachycardia, noncompliant with medication. 3. Uncontrolled hypertension. 4. Hypokalemia. 5. Questionable chronic left basal ganglia lacunar infarct. 6. Bilateral 20%-39% proximal internal carotid artery stenosis. 7. Questionable incomplete right bundle-branch block versus right ventricular conduction delay. 8. History of poor compliance. 9. History of lingular carcinoma status post partial glossectomy. 10. Hypokalemia. 11. History of hypothyroidism, history of dyslipidemia, history of hearing deficit, history of paroxysmal supraventricular tachycardia, history of dyslipidemia, history of hypothyroidism, history of tongue carcinoma, history of hypothyroidism, history of hearing deficit, history of questionable chronic obstructive pulmonary disease, history of pneumonia. PHYSICAL EXAMINATION: GENERAL: The patient was seen in the Emergency Room, then the patient was seen on the floor on telemetry. The patient is seen lying in the bed. VITAL SIGNS: T-max 98.0, heart rate 64-83, blood pressure 170/99, 137/80, 164/ 87, 148/94, respirations 16-18, O2 sat 95%-98%. HEAD: Normocephalic, atraumatic. HEENT: Shows pink conjunctivae, anicteric sclerae, positive left-sided tongue deformity and partial glossectomy. NECK: Questionable soft carotid bruit. CHEST: Kyphosis. LUNGS: Show ____ very occasional rhonchi. CARDIOVASCULAR: S1, S2. Questionable soft systolic murmur left sternal border , left second intercostal space. ABDOMEN: Soft, positive bowel sounds. No tenderness, no guarding, no rigidity. GENITALIA: Female. RECTAL: Deferred. EXTREMITIES: Shows no clubbing, no cyanosis, no pitting edema, no calf tenderness, no Homans' sign. NEUROLOGIC: The patient is alert, awake, oriented x 3. Cranial nerves II-XII intact. Speech is normal. SKIN: Warm and dry. PSYCHIATRIC: Negative for anxiety, depression. Negative for auditory or visual hallucination Negative for suicidal or homicidal ideation. NEUROLOGICAL: Negative at this time. GAIT: Could not be tested, as the patient is lying in the bed, and waiting to go for MRI of the brain. DIAGNOSTICS: CBC is within normal limits. PT, PTT, and D-dimer are negative. Chemistry is significant for a potassium of 3.3, troponin 0.02. CAT scan of the head was done, which the [facility] reading [place] reading was reviewed. v[facility] reading was reviewed. Chest x-ray report shows no active disease. vRad reading shows possible chronic left basal ganglia lacunar infarct. The patient's carotid ultrasound was ordered stat. MRI/MRA brain ordered stat. Results are pending. Carotid ultrasound showed 20-39% proximal internal carotid artery stenosis. EKG shows sinus rhythm with questionable right ventricular conduction delay versus incomplete right bundle-branch block. The patient was seen by the Emergency Room physician. The patient was evaluated. The patient was treated in the Emergency Room and placed on telemetry. IMPRESSION AND PLAN: 1. Syncope with shortness of breath, etiology undetermined. 2. History of paroxysmal supraventricular tachycardia, noncompliant with medication. 3. Uncontrolled hypertension. 4. Hypokalemia. 5. Questionable chronic left basal ganglia lacunar infarct. 6. Bilateral 20%-39% proximal internal carotid artery stenosis. 7. Questionable incomplete right bundle-branch block versus right ventricular conduction delay. 8. History of poor compliance. 9. History of lingular carcinoma status post partial glossectomy. 10. Hypokalemia. 11. History of hypothyroidism, history of dyslipidemia, history of hearing deficit, history of paroxysmal supraventricular tachycardia, history of dyslipidemia, history of hypothyroidism, history of tongue carcinoma, history of hypothyroidism, history of hearing deficit, history of questionable chronic obstructive pulmonary disease, history of pneumonia. PLAN: 1. At this time, the patient is placed on telemetry. 2. Consultation cardiology and neurology. 3. Thyroid profile ordered, vitamin D ordered, lipid panel ordered, serial cardiac enzymes, repeat chemistry ordered, potassium supplemented. Repeat labs ordered, RPR ordered. The patient is resumed on Coreg 6.25 twice a day, Cozaar 50 mg daily, Ecotrin 325 daily. The patient has been supplemented with potassium, Lipitor 40 daily, Lovenox 40 subQ daily for DVT prophylaxis, Protonix 40 mg daily for GI prophylaxis, Tylenol p.r.n. The patient is ordered MRI/MRA of the brain, echo with Doppler, EEG. Repeat EKG will be ordered. Heart-healthy diet. The patient was updated about the possible diagnostic possibilities and possible causes of her symptoms. The patient was again advised strict compliance with medication. The patient was advised strict dietary compliance, strict compliance with medication. The patient was advised strict compliance with physician followup, which she acknowledged and understood. At this time, the patient's further disposition will be dependent upon the patient's clinical condition, hemodynamic status, and as per patient's response to therapeutic intervention, as per patient's diagnostic test results, and as per recommendation by all the physicians involved in the care of the patient. PHYSICAL EXAMINATION: GENERAL: The patient was seen in room 260, bed 2. VITAL SIGNS: The patient's blood pressure ranging 145/82. Telemetry shows sinus rhythm. The patient is afebrile. HEAD: Normocephalic, atraumatic. HEENT: Shows pinkish conjunctivae. Anicteric sclerae. No oropharyngeal lesion. NECK: No neck rigidity. CHEST: Kyphosis. LUNGS: Shows no rales, crackles, or wheezing. CARDIOVASCULAR: Shows S1, S2, regular rhythm. ABDOMEN: Soft, positive bowel sounds. EXTREMITIES: Positive ecchymosis of the proximal and upper thigh with positive swelling, positive tenderness noted of the right upper thigh. No pitting edema noted of the lower extremity. VASCULAR: Palpable pulses. GAIT: The patient is ambulating in the room, but out of bed to chair. NEUROLOGIC: The patient is hard of hearing. DIAGNOSTIC DATA: Recent hemoglobin and hematocrit is above 11 grams. PT, PTT is normal. . The ultrasound of right groin was reviewed. IMPRESSION AND PLAN: 1. Post cardiac catheterization right femoral artery 2.4 cm pseudoaneurysm. 2. Right upper thigh, right groin post cardiac catheterization hematoma. 3. Status post thrombin injection of the right femoral artery pseudoaneurysm. 4. Mild normocytic anemia. 5. Mild hypokalemia. 6. History of hypertension, history of dyslipidemia, history of poor compliance , history of hearing deficit, history of hypothyroidism, history of possible sleep apnea, history of tongue carcinoma status post partial glossectomy, history of hearing deficit. PLAN: At this time, patient underwent right femoral artery thrombin injection. The patient has been admitted overnight for observation. The patient had a repeat ultrasound today of the right groin, which shows resolution of the right femoral artery pseudoaneurysm as per Dr. Flip Quintero and patient was cleared for discharge. Dictated and electronically signed, not read. Juancho Yu MD cc: [id number] TT: 11/29/2016 14:15:57 en 11/29/2016 13:23:56 PRIMO
== END 2016-11-29 13:53 | disposition home or self-care (01) ==
LOC: INTOOBSV 16:51 → 2RNO 16:51
PROVIDERS: ADMIT Internal Medicine; ATTEND Internal Medicine
DX: I72.4 Aneurysm of artery of lower extremity (principal); I97.630 Postprocedural hematoma of a circulatory system organ or structure following a cardiac catheterization; D64.9 Anemia, unspecified; E03.9 Hypothyroidism, unspecified; E78.00 Pure hypercholesterolemia, unspecified; E78.5 Hyperlipidemia, unspecified; E87.6 Hypokalemia; G47.30 Sleep apnea, unspecified; H91.90 Unspecified hearing loss, unspecified ear; I10 Essential (primary) hypertension; I25.10 Atherosclerotic heart disease of native coronary artery without angina pectoris; I25.2 Old myocardial infarction; S30.1XXA Contusion of abdominal wall, initial encounter; Z85.810 Personal history of malignant neoplasm of tongue; Z88.0 Allergy status to penicillin; Z91.018 Allergy to other foods; R42 Dizziness and giddiness
CPT/HCPCS: 36002; 36415; 74176; 76942; 80053; 85027; 85610; 85730; 93926; G0378

== ENCOUNTER 2016-12-05 09:22 | Emergency (ER) | payer MEDICARE, BC ==
[2016-12-05 09:37] VITALS: BMI 26.5
--- NOTE | 2016-12-05 09:57 | ED PDOC ---
Arrival/HPI - General Chief Complaint: Lower Extremity Problem/Injury Time Seen by Provider: 12/05/16 09:57 Historian: Patient - History of Present Illness Narrative History of Present Illness (Text): 12/05/16 09:57 A 76 year old female presents to the emergency department complaining of worsening right lower extremity swelling and ecchymosis. Patient reports her symptoms began after cardiac catherization in the end of last month. Patient denies any fever, chills, nausea, vomiting, abdominal pain, urinary symptoms, chest pain, shortness of breath or any other complaints. PMD: Dr. 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 Lr Time/Duration: Other (approximately 2 weeks) Symptom Course: Worsening Quality: Other Context: Other Past Medical History - Provider Review Nursing Documentation Reviewed: Yes - Infectious Disease Hx of Infectious Diseases: None - Tetanus Immunization Tetanus Immunization: Unknown - Cardiac Hx Cardiac Disorders: Yes Hx Hypertension: Yes - Pulmonary Hx Sleep Apnea: Yes (pt uses c-pap at night) - Neurological Hx Neurological Disorder: Yes Hx Dizziness: Yes - HEENT Hx HEENT Disorder: Yes Hx Deafness: Yes (hearing aids x2) Other/Comment: judi turner - Renal Hx Renal Disorder: No - Endocrine/Metabolic Hx Endocrine Disorders: Yes Hx Hypothyroidism: Yes - Hematological/Oncological Hx Blood Disorders: Yes Hx Cancer: Yes (tongue with surgery, no chemo or radiation) - Integumentary Hx Dermatological Disorder: No - Musculoskeletal/Rheumatological Hx Falls: No - Gastrointestinal Hx Gastrointestinal Disorders: Yes Other/Comment: ciliac disease, gluten free diet - Genitourinary/Gynecological Hx Genitourinary Disorders: No - Psychiatric Hx Psychophysiologic Disorder: No Hx Depression: No Hx Emotional Abuse: No Hx Physical Abuse: No Hx Substance Use: No - Past Surgical History Past Surgical History: Non-Contributing - Surgical History Hx Cardiac Catheterization: Yes - Anesthesia Hx Anesthesia: Yes Hx Anesthesia Reactions: No Hx Malignant Hyperthermia: No - Suicidal Assessment Feels Threatened In Home Enviroment: No Family/Social History - Physician Review Nursing Documentation Reviewed: Yes Family/Social History: No Known Family HX Smoking Status: Never Smoked Hx Alcohol Use: No Hx Substance Use: No Hx Substance Use Treatment: No Allergies/Home Meds Allergies/Adverse Reactions: Allergies Penicillins Allergy (Verified 12/05/16 09:37) RASH gluten Adverse Reaction (Verified 12/05/16 09:37) DIARRHEA Home Medications: Home Meds Medication Instructions Recorded Confirmed Thyroid,Pork [[place] Thyroid] 30 mg PO DAILY 12/05/16 12/05/16 Physical Exam - Physical Exam Narrative Physical Exam (Text): - Review of Systems Constitutional: Normal. absent: Fatigue, Weight Change, Fevers Eyes: Normal ENT: Normal Respiratory: Normal absent: SOB, Cough, Sputum Cardiovascular: Normal absent: Chest pain, Palpitations, Syncope Gastrointestinal: Normal absent: Abdominal pain, Diarrhea, Nausea, Vomiting Genitourinary: Normal. absent: Dysuria, Frequency, Hematuria Musculoskeletal: (+) Right lower extremity swelling and ecchymosis absent: Arthralgias, Back Pain, Neck Pain Skin: Normal Neurological: Normal absent: Focal Weakness Endocrine: Normal Hemo/Lymphatic: Normal Psychiatric: Normal - Physical exam Patient appears age appropriate, speaking full sentences without difficulty - Systems Exam Head: Present: Atraumatic, Normocephalic Pupils: Present: PERRL Extraocular Muscles: Present: EOMI Conjunctiva: Present: Normal Mouth: Present: Moist Mucous Membranes Neck: Present: Normal Range of Motion. No: MIDLINE TENDERNESS, Paraspinal Tenderness Respiratory/Chest: Present: Clear to Auscultation, Good Air Exchange. No: Respiratory Distress, Accessory Muscle Use, Tachypnic Cardiovascular: Present: Regular Rate and Rhythm, Normal S1, S2, Peripheral Pulses Present. No: Murmurs Abdomen: Present: Normal Bowel Sounds, No: Tenderness, Peritoneal Signs, Rebound, Guarding, Distention Back: Present: Normal Inspection. No: Midline Tenderness, Paraspinal Tenderness Upper Extremity: Present: Normal Inspection. No: Cyanosis, Edema Lower Extremity: Present: Noted swelling to right upper thigh, Large hematoma on right thigh/right groin with ecchymosis, Palpable mass with no bruit, Warmth to the extremity notedm with no cyanosis, Good right pedal pulses. Neurological: Present: GCS=15, Speech Normal, cranial nerves II through XII fully intact with no cerebellar abnormality, neuro-sensory fully intact. No focal neurological deficits. Skin: Present: Warm, Dry, Normal Color. No: Rashes Lymphatic: Present: OX3, NI, NC Psychiatric: Present: Alert, Oriented x 3, Normal Insight, Normal Concentration Vital Signs Reviewed: Yes Vital Signs Temp Pulse Resp BP Pulse Ox 12/05/16 14:00 98.7 F 66 17 151/69 H 99 12/05/16 09:37 97.9 F 74 16 158/83 H 98 Temperature: Afebrile Blood Pressure: Hypertensive (asymptomatic) Pulse: Regular Respiratory Rate: Normal Appearance: Positive for: Well-Appearing, Non-Toxic, Comfortable Pain Distress: None Mental Status: Positive for: Alert and Oriented X 3 Medical Decision Making ED Course and Treatment: 12/05/16 09:57 Impression: A 76 year old female with right lower extremity swelling and ecchymosis. Large hematoma on right thigh and groin with ecchymosis, swelling on exam, +distal pulses. Differential Diagnosis included but are not limited to: Aneurysm vs. Pseudoaneurysm Plan: -- Duplex lower extremity ultrasound -- Labs -- Reassess and disposition Progress Notes: 12/05/16 10:01 Dr. Flip Quintero paged. Awaiting call back. 12/05/16 10:53 Case discussed in detail with Dr. Quintero, who states if patient has good pedal pulses and no pseudoaneurysm on US, she may be discharged home. 12/05/16 15:[address] Quintero, states to dc pt home at this time pt in no distress, aware of and agrees with plan Pt states she understands to return to the ER right away for new or worsening symptoms or for inability to f/u with PMD or specialist as instructed. Patient states that she fully agrees with and understands discharge instructions. States that she agrees with the plan and disposition. Verbalized and repeated discharge instructions and plan. I have given the patient opportunity to ask any additional questions. - Lab Interpretations Lab Results: 12/05/16 10:35 12/05/16 10:35 Lab Results 12/05/16 10:35: PT 10.8, INR 1.00, APTT 23.7 12/05/16 10:35: WBC 6.4, RBC 3.74, Hgb 11.7 L, Hct 34.4 L, MCV 92.0, MCH 31.3, MCHC 34.0, RDW 14.5, Plt Count 313, MPV 10.0, Gran % 60.7, Lymph % (Auto) 29.1, [place] % (Auto) 7.0 H, Eos % (Auto) 2.3, Baso % (Auto) 0.9, Gran # 3.88, Lymph # 1.9, [place] # 0.5, Eos # 0.2, Baso # 0.06 12/05/16 10:35: Sodium 143, Potassium 3.9, Chloride 106, Carbon Dioxide 27, Anion Gap 14, BUN 11, Creatinine 0.7, Est GFR ( Amer) > 60, Est GFR (Non- Af Amer) > 60, Random Glucose 88, Calcium 9.6, Total Bilirubin 1.1, AST 29, ALT 32, Alkaline Phosphatase 94, Total Protein 8.0, Albumin 4.2, Globulin 3.8, Albumin/Globulin Ratio 1.1 12/05/16 10:30: Blood Type O POSITIVE, Antibody Screen Negative, BBK History Checked No verified bt I have reviewed the lab results: Yes - RAD Interpretation Radiology Orders: 12/05/16 09:59 DUPLEX LOWER EXTRM ARTR RIGHT [US] Stat - Scribe Statement The provider has reviewed the documentation as recorded by the Scribe Yumiko Mcintosh Provider Scribe Attestation: All medical record entries made by the Scribe were at my direction and personally dictated by me. I have reviewed the chart and agree that the record accurately reflects my personal performance of the history, physical exam, medical decision making, and the department course for this patient. I have also personally directed, reviewed, and agree with the discharge instructions and disposition. Disposition/Present on Arrival - Present on Arrival Any Indicators Present on Arrival: No History of DVT/PE: No History of Uncontrolled Diabetes: No Urinary Catheter: No History of Decub. Ulcer: No History Surgical Site Infection Following: None - Disposition Have Diagnosis and Disposition been Completed?: Yes Diagnosis: Hematoma Disposition: HOME/ ROUTINE Disposition Time: 15:54 Patient Plan: Discharge Condition: GOOD Discharge Instructions (ExitCare): Hematoma (ED) Additional Instructions: PLEASE RETURN TO THE EMERGENCY DEPARTMENT FOR NEW OR WORSENING SYMPTOMS. RETURN RIGHT AWAY IF YOU CANNOT FOLLOW UP WITH YOUR PRIMARY CARE DOCTOR, CLINIC, OR SPECIALIST IN 1-2 DAYS. Referrals: Flip Quintero MD [Staff Provider] - Follow up with primary
[2016-12-05 10:51] LABS: ADD MANUAL DIFF? NO
[2016-12-05 10:55] LABS: BASO # 0.06 K/mm3 (0.0-2.0); BASO % 0.9 % (0.0-3.0); EOS # 0.2 (0.0-0.7); EOS % 2.3 % (1.5-5.0); GRAN # 3.88 (1.4-6.5); GRAN % 60.7 % (50.0-68.0); HEMATOCRIT 34.4 % (36.0-48.0); LYMPH # 1.9 (1.2-3.4); LYMPH % 29.1 % (22.0-35.0); MEAN CORPUSCULAR HEMOGLOBIN 31.3 pg (25.0-35.0); MONO # 0.5 (0.1-0.6); PLATELET COUNT 313 10^3/uL (120.0-450.0); RED CELL DISTRIBUTION WIDTH 14.5 % (11.5-14.5); WHITE BLOOD COUNT 6.4 10^3/ul (4.5-11.0)
[2016-12-05 11:02] LABS: ALB/GLOB RATIO 1.1 (1.1-1.8); ALKALINE PHOSPHATASE 94 U/L (38-133); ALT/SGPT 32 U/L (7-56); AST/SGOT 29 U/L (15-39); BILIRUBIN,TOTAL 1.1 mg/dL (0.2-1.3); BLOOD UREA NITROGEN 11 mg/dL (7-21); CALCIUM 9.6 mg/dL (8.4-10.5); CARBON DIOXIDE 27 mmol/L (21-33); CHLORIDE 106 mmol/L (98-107); GFR AFRICAN-AMERICAN > 60; GLUCOSE,RANDOM 88 mg/dL (70-110); POTASSIUM 3.9 mmol/L (3.6-5.0); SODIUM 143 mmol/L (132-148)
[2016-12-05 11:04] LABS: PARTIAL THROMBOPLASTIN TIME 23.7 Seconds (23.7-30.8)
[2016-12-05 14:01] VITALS: TEMP 98.7
[2016-12-05 15:56] VITALS: BP 153/77; PULSE 76; RESP 18; O2SAT 96
--- NOTE | 2016-12-05 18:09 | US ---
PROCEDURE: Duplex arterial ultrasound of the right groin. HISTORY: Recent cardiac catheterization. Pseudoaneurysm. Status post thrombin injection. Persistent pain and bruising. Evaluate for recanalization. PHYSICIAN(S): Flip Quintero MD. FINDINGS: A multi lobulated hematoma is seen which is decreasing in size. No pseudoaneurysm is appreciated. The right common femoral artery is patent. IMPRESSION: 1. No sonographic evidence for pseudoaneurysm or AV fistula in the right groin. 2. Right groin hematoma which is somewhat smaller
== END 2016-12-05 16:12 | disposition home or self-care (01) ==
LOC: ED 09:22
DX: S80.11XA Contusion of right lower leg, initial encounter (principal); X58.XXXA Exposure to other specified factors, initial encounter

== ENCOUNTER 2017-05-15 13:18 | Emergency (ER) | payer MEDICARE, BC ==
[2017-05-15 13:33] VITALS: RESP 18; TEMP 98; BMI 29.2
[2017-05-15] MEDS ORDERED: Sodium Chloride 0.9% 500 ML IV STA (14:02)
--- NOTE | 2017-05-15 14:10 | ED PDOC ---
Arrival/HPI - General Chief Complaint: Dizziness/Lightheaded Time Seen by Provider: 05/15/17 14:00 Historian: Patient, Family (son-in-law) - History of Present Illness Narrative History of Present Illness (Text): 05/15/17 13:37 A 77 year old female, whose past medical history includes hypertension, presents to the emergency department complaining of weakness. Patient states this morning, she was having difficulty ambulating due to weakness. She notes she felt normal last night when going to bed. Prior visit in October when she had similar symptoms, patient states she was admitted and remained here in the hospital for several days, and various tests were done for her. Findings were unremarkable, no active disease was found. Patient mentions she experiences body aches all over. Also, she reports she takes Anera ellipta. No history of smoking or drinking alcohol. Patient notes dizziness, but denies of any shortness of breath, fever, chills, rhinorrhea, appetite changes, headache, or any other complaints. PMD: Dr. Juancho Yu Time/Duration: Prior to Arrival Symptom Onset: Sudden Symptom Course: Unchanged Past Medical History - Provider Review Nursing Documentation Reviewed: Yes - Infectious Disease Hx of Infectious Diseases: None - Tetanus Immunization Tetanus Immunization: Unknown - Cardiac Hx Cardiac Disorders: Yes Hx Hypertension: Yes - Pulmonary Hx Sleep Apnea: Yes (pt uses c-pap at night) - Neurological Hx Neurological Disorder: Yes Hx Dizziness: Yes - HEENT Hx HEENT Disorder: Yes Hx Deafness: Yes (hearing aids x2) Other/Comment: judi turner - Renal Hx Renal Disorder: No - Endocrine/Metabolic Hx Endocrine Disorders: Yes Hx Hypothyroidism: Yes - Hematological/Oncological Hx Blood Disorders: Yes Hx Cancer: Yes (tongue with surgery, no chemo or radiation) - Integumentary Hx Dermatological Disorder: No - Musculoskeletal/Rheumatological Hx Falls: No - Gastrointestinal Hx Gastrointestinal Disorders: Yes Other/Comment: ciliac disease, gluten free diet - Genitourinary/Gynecological Hx Genitourinary Disorders: No - Psychiatric Hx Psychophysiologic Disorder: No Hx Depression: No Hx Emotional Abuse: No Hx Physical Abuse: No Hx Substance Use: No - Past Surgical History Past Surgical History: Non-Contributing - Surgical History Hx Cardiac Catheterization: Yes - Anesthesia Hx Anesthesia: Yes Hx Anesthesia Reactions: No Hx Malignant Hyperthermia: No - Suicidal Assessment Feels Threatened In Home Enviroment: No Family/Social History - Physician Review Nursing Documentation Reviewed: Yes Family/Social History: No Known Family HX Smoking Status: Never Smoked Hx Alcohol Use: No Hx Substance Use: No Hx Substance Use Treatment: No Allergies/Home Meds Allergies/Adverse Reactions: Allergies Penicillins Allergy (Verified 12/05/16 09:37) RASH gluten Adverse Reaction (Verified 12/05/16 09:37) DIARRHEA Home Medications: Home Meds Medication Instructions Recorded Confirmed Thyroid,Pork [[place] Thyroid] 30 mg PO DAILY 12/05/16 12/05/16 Review of Systems - Physician Review All systems were reviewed & negative as marked: Yes - Review of Systems Constitutional: Other (weakness causing difficulty to ambulate ). absent: Fevers, Night Sweats Respiratory: absent: SOB, Cough Gastrointestinal: absent: Appetite Changes Neurological: Dizziness. absent: Headache Physical Exam Vital Signs Reviewed: Yes Vital Signs Temp Pulse Resp BP Pulse Ox 05/15/17 16:45 77 18 146/73 99 05/15/17 15:18 64 18 148/75 96 05/15/17 13:31 98.0 F 65 18 155/88 H 96 Temperature: Afebrile Blood Pressure: Hypertensive Pulse: Regular Respiratory Rate: Normal Appearance: Positive for: Well-Appearing Pain Distress: None Mental Status: Positive for: Alert and Oriented X 3 Medical Decision Making ED Course and Treatment: 05/15/17 13:45 Impression: 77 year old female with weakness causing difficulty in ambulating. Plan: -- EKG -- Chest X-ray -- Labs -- IV Fluids -- Reassess and disposition Prior Visits: Notes and results from previous visits were reviewed. Patient was last seen in the emergency department on 12/05/2016 for right lower leg swelling and ecchymosis. Patient was discharged home. Progress Notes: 05/15/2017 14:44 Chest X-ray IMPRESSION: No active disease. Dictator: Juan Vizcarra MD 05/15/17 16:13 Labs have been reviewed and Chest X-ray completed. Patient has been notified findings or labs and radiographs are unremarkable, and patient is feel better at this time. Patient to be discharged home, and recommended to start getting up slowly in order to reduce chance of immediate dizziness. Reassessment Condition: Re-examined, Improved - Lab Interpretations Lab Results: 05/15/17 15:45 05/15/17 14:40 Lab Results 05/15/17 15:45: WBC 5.8, RBC 4.23, Hgb 13.1, Hct 39.1, MCV 92.4, MCH 31.0, MCHC 33.5, RDW 14.7 H, Plt Count 222, MPV 10.4, Gran % 61.2, Lymph % (Auto) 30.3, Warren % (Auto) 5.7, Eos % (Auto) 2.1, Baso % (Auto) 0.7, Gran # 3.53, Lymph # 1.8 , Warren # 0.3, Eos # 0.1, Baso # 0.04 05/15/17 14:40: Sodium 144, Potassium 4.1, Chloride 108 H, Carbon Dioxide 26, Anion Gap 14, BUN 15, Creatinine 0.6 L, Est GFR ( Amer) > 60, Est GFR ( Non-Af Amer) > 60, Random Glucose 83, Calcium 9.2, Total Bilirubin 0.5, AST 38 H , ALT 38, Alkaline Phosphatase 88, Troponin I < 0.01 D, NT-Pro-B Natriuret Pep 158, Total Protein 7.0, Albumin 4.2, Globulin 2.8, Albumin/Globulin Ratio 1.5 I have reviewed the lab results: Yes - RAD Interpretation Radiology Orders: 05/15/17 14:03 CHEST PORTABLE [RAD] Stat - EKG Interpretation EKG Interpretation (Text): 05/15/17 14:08 ekg demonstates a NSR at 65BPM.RSR in v1 cw RVCD,old ASWMI - Medication Orders Current Medication Orders: Discontinued Medications Sodium Chloride (Sodium Chloride 0.9%) 500 mls @ 999 mls/hr IV .Q31M STA Stop: 05/15/17 14:32 Last Admin: 05/15/17 14:45 Dose: 999 mls/hr eMAR Start Stop Document 05/15/17 14:45 EQ (Rec: 05/15/17 14:45 EQ [facility] [id number]) Intravenous Solution Start Date 05/15/17 Start Time 14:45 - Scribe Statement The provider has reviewed the documentation as recorded by the José Miguel Elizondo Provider Scribe Attestation: All medical record entries made by the Scribe were at my direction and personally dictated by me. I have reviewed the chart and agree that the record accurately reflects my personal performance of the history, physical exam, medical decision making, and the department course for this patient. I have also personally directed, reviewed, and agree with the discharge instructions and disposition. Disposition/Present on Arrival - Present on Arrival Any Indicators Present on Arrival: No History of DVT/PE: No History of Uncontrolled Diabetes: No Urinary Catheter: No History of Decub. Ulcer: No History Surgical Site Infection Following: None - Disposition Have Diagnosis and Disposition been Completed?: Yes Diagnosis: Near syncope, Asthenia Disposition: HOME/ ROUTINE Disposition Time: 19:32 Patient Plan: Discharge Condition: FAIR Discharge Instructions (ExitCare): Weakness (ED) Print Language: WELSH Additional Instructions: get up slowly from lying position Referrals: Juancho Yu MD [Primary Care Provider] - Follow up with primary Forms: [employer] ([place])
--- NOTE | 2017-05-15 14:46 | RAD ---
HISTORY: dizzy COMPARISON: 11/21/2016 FINDINGS: LUNGS: No active pulmonary disease. PLEURA: No significant pleural effusion identified, no pneumothorax apparent. CARDIOVASCULAR: Normal. OSSEOUS STRUCTURES: No significant abnormalities. VISUALIZED UPPER ABDOMEN: Normal. OTHER FINDINGS: None. IMPRESSION: No active disease.
[2017-05-15 15:11] LABS: ALB/GLOB RATIO 1.5 (1.1-1.8); ALKALINE PHOSPHATASE 88 U/L (38-126); ALT/SGPT 38 U/L (7-56); AST/SGOT 38 U/L (14-36); BILIRUBIN,TOTAL 0.5 mg/dL (0.2-1.3); BLOOD UREA NITROGEN 15 mg/dL (7-21); CALCIUM 9.2 mg/dL (8.4-10.5); CARBON DIOXIDE 26 mmol/L (21-33); CHLORIDE 108 mmol/L (98-107); GFR AFRICAN-AMERICAN > 60; GLUCOSE,RANDOM 83 mg/dL (70-110); POTASSIUM 4.1 mmol/L (3.6-5.0); SODIUM 144 mmol/L (132-148)
[2017-05-15 15:32] LABS: TROPONIN I < 0.01 ng/mL
[2017-05-15 15:58] LABS: BASO # 0.04 K/mm3 (0.0-2.0); BASO % 0.7 % (0.0-3.0); EOS # 0.1 (0.0-0.7); EOS % 2.1 % (1.5-5.0); GRAN # 3.53 (1.4-6.5); GRAN % 61.2 % (50.0-68.0); HEMATOCRIT 39.1 % (36.0-48.0); LYMPH # 1.8 (1.2-3.4); LYMPH % 30.3 % (22.0-35.0); MEAN CELL VOLUME 92.4 fl (80.0-105.0); MEAN CORPUSCULAR HGB CONC 33.5 g/dl (31.0-37.0); MEAN PLATELET VOLUME 10.4 fl (7.0-11.0); MONO # 0.3 (0.1-0.6); MONO % 5.7 % (1.0-6.0); RED CELL DISTRIBUTION WIDTH 14.7 % (11.5-14.5); WHITE BLOOD COUNT 5.8 10^3/ul (4.5-11.0)
[2017-05-15 16:46] VITALS: BP 146/73; PULSE 77; O2SAT 99
--- NOTE | 2017-05-15 20:42 | CARD ---
APPROVED REPORT EKG Measurement Heart [id number] <Conclusion> Poor data quality, interpretation may be adversely affected Normal sinus rhythm RSR' or QR pattern in V1 suggests right ventricular conduction delay Septal infarct, age undetermined Abnormal ECG
== END 2017-05-15 16:46 | disposition home or self-care (01) ==
LOC: ED 13:18
DX: R55 Syncope and collapse (principal); R53.1 Weakness; I10 Essential (primary) hypertension
CPT/HCPCS: 71010; 80053; 83880; 84484; 85025; 93005; 99285; J7040